=== PATIENT | female | born 1970 | race Caucasian/White ===

== ENCOUNTER 2018-02-09 15:06 | Emergency (ER) | payer OTHER ==
[2018-02-09 15:12] VITALS: BP 125/79; PULSE 78; RESP 18; TEMP 97.9
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
== END 2018-02-09 17:10 | disposition home or self-care (01) ==
LOC: EC 15:06
DX: S30.1XXA Contusion of abdominal wall, initial encounter (principal); E78.5 Hyperlipidemia, unspecified; Z90.49 Acquired absence of other specified parts of digestive tract; W50.0XXA Accidental hit or strike by another person, initial encounter
CPT/HCPCS: 99283

== ENCOUNTER 2018-05-17 09:42 | Emergency (ER) | payer OTHER ==
[2018-05-17] MEDS ORDERED: HYDROmorphone 1 MG/ML 1 ML SYRINGE IVP STA (09:46)
[2018-05-17] MEDS ORDERED: ONDANSETRON 4 MG/2 ML VIAL IVP STA (09:46)
[2018-05-17] MEDS ORDERED: METOCLOPRAMIDE 5 MG/ML 2 ML VIAL IVP STA (09:51)
--- NOTE | 2018-05-17 09:51 | ED ---
Female Urogenital HPI - General Stated complaint: ovarian cysts Time Seen by Provider: 05/17/18 09:45 Source: patient, EMS, RN notes reviewed Mode of arrival: EMS Limitations: no limitations - History of Present Illness Initial comments: This a 47-year-old female presents emergency Department chief complaint of right -sided abdominal pain. Patient was transferred from [facility] for right ovarian mass. Patient states she had minimal pain yesterday states the pain primarily started around 5:00 this morning. She states that she's had multiple rounds of Toradol, morphine and states that has not helped. Patient states that her ELECTRIC CAR OPERATOR is Dr. Yancey. Patient's had a prior ablation, multiple sections. Patient denies fever, chills she doesn't nausea and vomiting. Patient denies any chest pain or shortness of breath. Patient states pain radiates to her back. - Related Data Home Medications Medication Instructions Recorded Confirmed Aspirin EC [Ecotrin Low Dose] 81 mg PO DAILY 05/17/18 05/17/18 [place] Red 1 cap PO DAILY 05/17/18 05/17/18 Allergies Allergy/AdvReac Type Severity Reaction Status Date / Time No Known Allergies Allergy Verified 05/17/18 10:13 Review of Systems ROS Statement: Those systems with pertinent positive or pertinent negative responses have been documented in the HPI. ROS Other: All systems not noted in ROS Statement are negative. Past Medical History Past Medical History: Hyperlipidemia History of Any Multi-Drug Resistant Organisms: None Reported Past Surgical History: Ablation, Cholecystectomy Additional Past Surgical History / Comment(s): Hernia repair Past Psychological History: No Psychological Hx Reported Smoking Status: Never smoker Past Alcohol Use History: None Reported Past Drug Use History: None Reported General Exam Limitations: no limitations General appearance: alert, in no apparent distress Head exam: Present: atraumatic, normocephalic, normal inspection Respiratory exam: Present: normal lung sounds bilaterally. Absent: respiratory distress, wheezes, rales, rhonchi, stridor Cardiovascular Exam: Present: regular rate, normal rhythm, normal heart sounds. Absent: systolic murmur, diastolic murmur, rubs, gallop, clicks GI/Abdominal exam: Present: soft, tenderness (Moderate to severe right-sided), normal bowel sounds. Absent: distended, guarding, rebound, rigid Back exam: Absent: CVA tenderness (R), CVA tenderness (L) Skin exam: Present: warm, dry, intact, normal color. Absent: rash Course Vital Signs 05/17/18 05/17/18 05/17/18 09:43 11:16 12:40 Temperature 97.5 F L Pulse Rate 92 91 87 Respiratory 18 20 18 Rate Blood Pressure 147/81 153/84 148/78 O2 Sat by Pulse 97 96 95 Oximetry Medical Decision Making - Medical Decision Making 47-year-old female presented for right-sided ovarian mass. Ultrasound was performed here which shows complex 12.7 x 7.4 x 2 cm ovarian mass. Patient was evaluated by Dr. Yancey her ELECTRIC CAR OPERATOR and case discussed with him. He recommends patient be transferred to [facility] for evaluation by oncology ELECTRIC CAR OPERATOR. I did discuss the case with ELECTRIC CAR OPERATOR fellow,accepting physician Dr. Barros. Patient will be sent for observation, evaluation and possible further treatment. Patient's had intractable pain in the emergency department. Patient had 12 mg of morphine by outside facility, 30 mg of Toradol. Patient also had 1.5 mg of Dilaudid. Patient still rates pain 8 out of 10. Disposition Clinical Impression: Ovarian mass, right, Intractable abdominal pain Disposition: OTHER INSTITUTION NOT DEFINED Referrals: Dean Li DO [Primary Care Provider] - 1-2 days Time of Disposition: 13:10 - Out of Hospital Transfer - Req. Specs Out of Hospital Transfer - Requested Specifics: Other Emergency Center ( [facility])
[2018-05-17] MEDS ORDERED: HYDROmorphone 0.5 MG/0.5 ML SYRINGE IVP STA ×2 (10:59→13:15)
--- NOTE | 2018-05-17 11:52 | US ---
EXAMINATION TYPE: US pelvis parker w tv w doppler DATE OF EXAM: 05/17/2018 COMPARISON: CT 2009 CLINICAL HISTORY: right ovarian mass on CT. Right pelvic pain, history of uterine ablation, 4 , para 3, miscarriage 1, history of 3 c-sections and tubal ligation. TECHNIQUE: Transvaginal ER exam with additional right adnexa transabdominal images. Date of LMP: Unknown EXAM MEASUREMENTS: Uterus: 6.6 x 3.6 x 4.1 cm Endometrial Stripe: 0.5 cm Right Ovary: cm Left Ovary: 5.9 x 2.9 x 4.1 cm 1. Uterus: anteverted, heterogeneous, nabothian cyst 2. Endometrium: appears wnl 3. Right Ovary: complex structure within right adnexa, right ovary is not seen. 4. Left Ovary: 3.4 x 2.5 x 3.2cm Spectral, color and waveform doppler imaging shows good arterial flow within the left ovary, unable to obtain venous flow within left ovary. Right ovary not clearly depicted and therefore vascular shahbaz lysis nondiagnostic. 5. Bilateral Adnexa: 2.0 x 7.4 x 12.7cm complex septated structure within right adnexa, 6. Posterior cul-de-sac: small amount of free fluid IMPRESSION: 1. There are bilateral complex appearing masses within the pelvis. This could be ovarian and related to complex cystic ovarian masses this includes ovarian neoplasms including malignancy. Cystic dilatio n fallopian tubes or pelvic inflammatory disease not excluded. Correlate clinically. Case discussed w ith ER clinician. Other etiologies not excluded. 2. Note is made of venous flow could not be obtained to the left ovary. Early torsion not excluded. 3. Small amount of free fluid in the pelvis.
[2018-05-17] MEDS ORDERED: KETOROLAC 30 MG/ML 1 ML VIAL IVP STA (12:11)
[2018-05-17 12:46] VITALS: RESP 18
--- NOTE | 2018-05-17 12:53 | P.OBCN ---
History of Present Illness Consult date: 05/17/18 Reason for consult: pelvic pain, pelvic mass Chief complaint: Abdominal pelvic pain History of present illness: This patient is a pleasant 47-year-old 4 para 3 female who began having some lower abdominal pelvic pain she states on Wednesday. At approximately 5:00 this morning her pain became much worse and she went to [facility] emergency department. Evaluation there included a CAT scan which showed a large pelvic mass. Since they have no TWISTING FRAME FIXER coverage at that hospital she was transferred to this emergency department for further evaluation. I however was not contacted about the patient from the other hospital. Evaluation here included a transvaginal and abdominal ultrasound which shows a normal uterus with a 12.7 x 7.4 complex septated mass of the right adnexa and a 3.4 x 3.2 cm mass in the left adnexa. There was also some small amount of free fluid. Patient was last seen in my office in April 2017 and was without WALLPAPERER problems. She does have a history of irritable bowel syndrome and has had an endometrial ablation in the past also for menorrhagia. Patient states that she was having no pain up until last Wednesday. Review of Systems Constitutional: Reports as per HPI Genitourinary: Reports as per HPI, Reports pelvic pain Menstruation: Reports amenorrhea Past Medical History Past Medical History: Hyperlipidemia Additional Past Medical History / Comment(s): Irritable bowel syndrome History of Any Multi-Drug Resistant Organisms: None Reported Past Surgical History: Ablation, Section, Cholecystectomy Additional Past Surgical History / Comment(s): Hernia repair Past Anesthesia/Blood Transfusion Reactions: No Reported Reaction Past Psychological History: No Psychological Hx Reported Smoking Status: Never smoker Past Alcohol Use History: None Reported Past Drug Use History: None Reported Medications and Allergies Home Medications Medication Instructions Recorded Confirmed Type Aspirin EC [Ecotrin Low Dose] 81 mg PO DAILY 05/17/18 05/17/18 History [place] Red 1 cap PO DAILY 05/17/18 05/17/18 History Allergies Allergy/AdvReac Type Severity Reaction Status Date / Time No Known Allergies Allergy Verified 05/17/18 10:13 Exam Vital Signs Temp Pulse Resp BP Pulse Ox 05/17/18 11:16 91 20 153/84 96 05/17/18 09:43 97.5 F L 92 18 147/81 97 Intake and Output 05/16/18 05/17/18 05/17/18 22:59 06:59 14:59 Other: Weight 72.575 kg Results Pelvic ultrasound as above. CAT scan done at the outside hospital. CA-125 is pending. Assessment and Plan Assessment: This is a pleasant 47-year-old 4 para 3 female with three-day history of lower pelvic/abdominal pain that has worsened today. Patient appears quite uncomfortable and ultrasound shows a large right ovarian complex cystic mass and a smaller left mass. Also a small amount of free fluid. I had a long discussion about the possible etiologies of this and certainly one has to be concerned about a primary ovarian carcinoma. This could be an ovarian torsion however is less likely due to the bilateral nature. The free fluid is also somewhat concerning. Patient at this time is stable and it is my recommendation that if possible she be transferred to a WALLPAPERER oncologist due to the possibility of ovarian neoplasm. Dr. Otero is in the process of contacting WALLPAPERER oncology for transfer. I explained to the patient that if this is a benign processes she still needs surgery however if it is an ovarian carcinoma the consensus is that she will get the optimal care by a WALLPAPERER oncologist, hence the reason for transfer. Patient understands if they do not accept her in transfer the most likely wouldn't need to go to the operating room today for exploratory laparotomy and further surgery. I explained this in detail to the patient and her daughters. She understands and agrees for transfer. All of her questions are answered. (1) Ovarian mass, left Current Visit: Yes Status: Acute Code(s): N83.9 - NONINFLAMMATORY DISORD OF OVARY, FALLOP & BROAD LIGMT, UNSP SNOMED Code(s): 860236104 (2) Ovarian mass, right Current Visit: Yes Status: Acute Code(s): N83.9 - NONINFLAMMATORY DISORD OF OVARY, FALLOP & BROAD LIGMT, UNSP SNOMED Code(s): 940977787 (3) Pelvic pain Current Visit: Yes Status: Acute Code(s): R10.2 - PELVIC AND PERINEAL PAIN SNOMED Code(s): 57819663
[2018-05-17 13:33] VITALS: BP 156/88; PULSE 103; TEMP 98.5
== END 2018-05-17 13:32 | disposition other institution (70) ==
LOC: EC 09:42
DX: N83.9 Noninflammatory disorder of ovary, fallopian tube and broad ligament, unspecified (principal); Z79.82 Long term (current) use of aspirin; Z53.8 Procedure and treatment not carried out for other reasons
CPT/HCPCS: 36415; 86304; 93976; 76830; 99285; 96374; 96375 ×2; 96376 ×2; J2765; J1885; J1170 ×2

== ENCOUNTER → 2018-07-21 | Outpatient (CLI) | payer OTHER ==
--- NOTE | 2018-07-21 13:59 | US ---
EXAMINATION TYPE: US pelvic complete DATE OF EXAM: 07/21/2018 COMPARISON: US 05/17/2018 CLINICAL HISTORY: R10.2 Pelvic Pain. Right sided x 3 days. 3 C-Sections. Uterine Ablation. Tubal lig ation. Right ovary and fallopian tube removed April 2018. TECHNIQUE: Transvaginal (TV). Date of LMP: Unknown EXAM MEASUREMENTS: Uterus: 6.8 x 4.9 x 4.0 cm Endometrial Stripe: Unclear. cm Right Ovary: removed cm Left Ovary: 4.0 x 2.5 x 2.0 cm 1. Uterus: Area of mixed echogenicity seen: 0.7 x 0.9 x 0.7cm Hyperechoic area seenL 0.6 x 0.7 x 0.6 cm. Subcentimeter anechoic area seen in cervix. 2. Endometrium: anechoic area with debris in KRISHNA- complex fluid? 3. Right Ovary: removed 4. Left Ovary: Anechoic areas seen. Largest: 2.6 x 2.3 x 1.6 cm. Spectral, color and waveform doppler imaging shows good arterial and venous flow within the ovaries ; there is no evidence for ovarian torsion. 5. Bilateral Adnexa: wnl 6. Posterior cul-de-sac: wnl IMPRESSION: 1. Small complex uterine myometrial lesion is of uncertain etiology. 2. Anechoic area with debris low uterine segment of the endometrium. 3. Dominant left ovarian cyst likely functional in nature.
== END ==
LOC: RADUSWWP 12:38
PROVIDERS: ATTEND Obstetrics & Gynecology
DX: N83.202 Unspecified ovarian cyst, left side (principal); N83.9 Noninflammatory disorder of ovary, fallopian tube and broad ligament, unspecified
CPT/HCPCS: 76830

== ENCOUNTER → 2018-09-30 | Outpatient (CLI) | payer OTHER ==
--- NOTE | 2018-10-03 08:56 | MM ---
Reason for exam: screening (asymptomatic). Last mammogram was performed 2 years and 9 months ago. History: Family history of breast cancer in 2 maternal aunts. Physical Findings: A clinical breast exam by your physician is recommended on an annual basis and results should be correlated with mammographic findings. MG Screening Mammo w CAD Bilateral CC and MLO view(s) were taken. Prior study comparison: July 23, 2017, mammogram. December 17, 2015, mammogram. The breast tissue is heterogeneously dense. This may lower the sensitivity of mammography. There is a group of calcifications in the left upper outer quadrant at posterior depth and in the lower inner quadrant at middle depth. No suspicious abnormality in the right breast. ASSESSMENT: Incomplete: need additional imaging evaluation, BI-RAD 0 RECOMMENDATION: Special view mammogram of the left breast. [facility] will attempt to contact patient to return for supplemental views.
== END | disposition home or self-care (01) ==
LOC: RADMAMWWP 08:31
PROVIDERS: ATTEND Obstetrics & Gynecology
DX: Z12.31 Encounter for screening mammogram for malignant neoplasm of breast (principal)
CPT/HCPCS: 77067

== ENCOUNTER → 2018-10-05 | Outpatient (CLI) | payer OTHER ==
--- NOTE | 2018-10-05 15:00 | MM ---
Reason for exam: additional evaluation requested from abnormal screening. Last mammogram was performed less than 1 month ago. History: Family history of breast cancer in 2 maternal aunts. Physical Findings: Nurse did not find any significant physical abnormalities on exam. (Nurse KP) MG 3D Work Up W/Cad LT Spot compression CC, spot compression MLO, and ML view(s) were taken of the left breast. Prior study comparison: September 30, 2018, bilateral MG screening mammo w CAD. July 23, 2017, mammogram. The breast tissue is heterogeneously dense. This may lower the sensitivity of mammography. There is a 1.3 cm group of calcifications in the left inner quadrant at the anterior depth for which stereo core biopsy is recommended as these are new and indeterminate. There is also a 2mm new group of calcifications in the upper outer quadrant at the middle depth. These are also indererminate and a stereo core biopsy is recommended. ASSESSMENT: Suspicious, BI-RAD 4 RECOMMENDATION: Stereotactic core biopsy of the left breast. Called Dr Yancey with mammographic findings and has scheduled an appointment for the patient on November 17 at 9:[address] Dailey. for results. Left Stereotactic Biopsy is scheduled on November 04. PRELIMINARY REPORT CALLED AND FAZED TO DR DAILEY ON 10-05-2018.
== END | disposition home or self-care (01) ==
LOC: RADMAMWWP 08:52
PROVIDERS: ATTEND Obstetrics & Gynecology
DX: R92.8 Other abnormal and inconclusive findings on diagnostic imaging of breast (principal)
CPT/HCPCS: 77061; 77065

== ENCOUNTER → 2018-11-04 | Day surgery (SDC) | payer OTHER ==
[2018-11-04 09:33] VITALS: RESP 16; TEMP 97.7; BMI 69.9
[2018-11-04 11:51] VITALS: BP 120/78; PULSE 99
--- NOTE | 2018-11-04 16:37 | MM ---
EXAMINATION TYPE: MG stereo VAD BX LT DATE OF EXAM: 11/04/2018 COMPARISON: NONE CLINICAL HISTORY: Abnormal mammogram, 2 locations abnormal calcifications TECHNIQUE: Stereotactic guided core biopsy of left breast. FINDINGS: The procedure of stereotactic guided core biopsy was explained to the patient. Benefits, alternatives, and risks were discussed. An informed consent was then obtained. Timeout was performed. The first more difficult site was attempted be targeted with multiple attempts. The Z value is very shallow at what would appear to be the targeted calcifications. This precluded safe biopsy of these calcifications. Patient was informed of these calcifications were not biopsied at this time and management decisions may be made following pathology of the second biopsy site. The shortness pathway for biopsy was chosen. Shortness pathway was inferior caudal cranial approach. Procedure was performed by Dr. Sanofrd. Targeting was performed by the radiologist. A vacuum assisted biopsy gun was used to obtain 4 core samples. Skin was cleansed with Betadine. Skin and deeper breast tissue was anesthetized with 1% lidocaine. Skin tamera was placed. Needle was advanced and positioned was confirmed in 2 views. Needle was then advanced into its final position and positioning was confirmed in 2 views. 4 core samples were obtained. On the last core sample patient experienced pain, additional core samples were not obtained. Clip was placed at the biopsy site. Specimen radiograph: Specimen radiograph was obtained demonstrating multiple calcifications within the sample. Postprocedure mammogram: Surgical clip is at the expected calcifications biopsy site. The patient tolerated the procedure well without any immediate complication. Good hemostasis was obtained with direct pressure. Discharge instructions were discussed with the patient. The patient will follow-up with her physician for results. IMPRESSION: 1. Successful stereotactic core biopsy larger group of suspicious calcifications. 2. Initial smaller posterior group of calcifications left upper outer quadrant were unable to be biopsied at this time, not being adequately visualized during targeting. Recommendations: 1. Recommendations are pending pathology results. 2. Dependent upon the pathology, the decision on how to manage the additional calcifications is pending. Negative pathology does not preclude neoplasm at the second site. 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 See Surgical Pathology Cancer Case Summary. 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 Recommendation Surgical consult of the left breast. Therapy and follow up. Second site: re-evaluate for neoplasm, questionable open biopsy, unable to see on stereotactic. MTDD
== END ==
LOC: RADMAMWWP 09:14
PROVIDERS: ATTEND Surgery
DX: D05.12 Intraductal carcinoma in situ of left breast (principal)
CPT/HCPCS: 88305; 88342; 19081; A4648; J2001; 88341

== ENCOUNTER → 2018-11-10 | Outpatient (CLI) | payer OTHER ==
[2018-11-10 11:58] VITALS: BP 123/82; PULSE 101; RESP 18; TEMP 98.7; BMI 31.7
--- NOTE | 2018-11-10 12:59 | P.GSHP ---
History of Present Illness H&P Date: 11/10/18 Chief Complaint: DCIS left breast Giulia is a 48-year-old white female who underwent routine screening mammogram was noted to have an area of concern in the left breast. She underwent a stereotactic core biopsy which revealed low-grade ductal carcinoma in situ. The procedure was done in . Additionally there was a second area noted in the breast for which stereotactic core biopsy was recommended however there were unable to target this at the procedure in this area was therefore not sampled. She denies anything of concern in her breast at this time. She has no nipple discharge or skin changes. She has no history of any infection or trauma to the breast. Giulia states that since the procedure she has had some serous-like drainage from the nipple area. Family History: 2 maternal aunts with breast cancer: (one in late 40's and other late 50's) father: lung cancer mother: skin cancer Hormonal history: Menarche: 11 1 miscarrage, breast fed: yes, first born at 19 Periods: ablation 2012 still has spotting irregular BCP: 6 years hormones: none Past surgical history: 1. 3 C-sections 2. tubaligation 3. Cholecystectomy 4. Umbilical hernia 5. right ovary, Right tube and left tube gone she still has her left ovary Medical history: 1. pre-diabetic 2. high cholesterol Social history: Smoke: As a teen has not smoked for 30 years Alcohol: Occasional 1 time a month Drugs: Negative - Constitutional Constitutional: Denies chills, Denies fever - EENT Eyes: denies blurred vision, denies pain Ears: deny: decreased hearing, tinnitus Ears, nose, mouth and throat: Denies headache, Denies sore throat - Breasts Breasts: bilateral: as per HPI - Cardiovascular Cardiovascular: Denies chest pain, Denies shortness of breath - Respiratory Respiratory: Denies cough, Denies 7 - Gastrointestinal Comment: IBS Gastrointestinal: Reports diarrhea, Denies abdominal pain, Denies nausea, Denies vomiting - Genitourinary (Female) Genitourinary: Denies dysuria, Denies hematuria - Menstruation Menstruation: Reports as per HPI - Musculoskeletal Musculoskeletal: Denies myalgias - Integumentary Integumentary: Denies pruritus, Denies rash - Neurological Neurological: Denies numbness, Denies weakness - Psychiatric Psychiatric: Denies anxiety, Denies depression - Endocrine Comment: pre-diabetic - Hematologic/Lymphatic Comment: none - Allergic/Immunologic Comment: none Past Medical History Past Medical History: Hyperlipidemia Additional Past Medical History / Comment(s): Irritable bowel syndrome History of Any Multi-Drug Resistant Organisms: None Reported Past Surgical History: Cholecystectomy, Hysterectomy, Uterine Ablation Additional Past Surgical History / Comment(s): Hernia repair. Right oopherectomy 2019 Past Anesthesia/Blood Transfusion Reactions: No Reported Reaction Past Psychological History: No Psychological Hx Reported Smoking Status: Never smoker Past Alcohol Use History: Occasional Past Drug Use History: None Reported Medications and Allergies Home Medications Medication Instructions Recorded Confirmed Type Cholecalciferol (Vitamin D3) 1,000 unit PO DAILY 10/21/18 11/10/18 History [Vitamin D3] Fenofibrate [Lofibra] 160 mg PO ONCE 10/21/18 11/10/18 History metFORMIN HCL [Glucophage] 500 mg PO BID 10/21/18 11/10/18 History Allergies Allergy/AdvReac Type Severity Reaction Status Date / Time No Known Allergies Allergy Verified 11/10/18 11:58 Surgical - Exam Vital Signs Temp Pulse Resp BP Pulse Ox 98.7 F 101 H 18 123/82 98 11/10/18 11:55 11/10/18 11:55 11/10/18 11:55 11/10/18 11:55 11/10/18 11:55 BMI 31.7 - General well developed, well nourished, no distress - Eyes normal ocular movement - ENT no hearing loss, no congestion - Neck no masses, trachea midline - Respiratory normal respiratory effort, clear to auscultation - Cardiovascular Rhythm: regular Heart Sounds: normal: S1, S2 - Abdomen Abdomen: soft, non tender, no guarding, no rigid, no rebound - Integumentary normal turgor - Neurologic no disoriented, no combative - Musculoskeletal normal gait, normal posture - Psychiatric oriented to time, oriented to person, oriented to place, speech is normal, memory intact breast exam: right breast: Multi-positional exam fibrocystic changes, no dominant masses or nodules of concern Right axilla: No adenopathy of concern Left breast: Excoriation of the tip of the nipple is likely related to tape at the time of stereo procedure, no infection, multiple positional exam no dominant mass or nodule is of concern, mild ecchymosis at site of biopsy Left axilla: No adenopathy of concern Results Mammogram personally reviewed with radiologist Assessment and Plan Assessment: Impression: 1. DCIS left breast 2. Mammographic abnormality 2 left breast only one area sampled 3. Prediabetes 4. Family history breast cancer 5. High cholesterol Plan: 1. Repeat attempt at stereo biopsy upper outer quadrant 2 mm lesion in the left breast 2. Genetic testing 3. Patient to meet with radiation oncology 4. Case to be presented at tumor board We have discussed surgical options including mastectomy versus lumpectomy plus radiation therapy. She will also most likely have sentinel node biopsy possible axillary node dissection. We will address the secondary in the left breast either by stereo biopsy or needle local excision at the time of the lumpectomy. Cc: Dr. Li
== END ==
LOC: WWCWWP 11:45
PROVIDERS: ATTEND Surgery
DX: Z53.9 Procedure and treatment not carried out, unspecified reason (principal)

== ENCOUNTER 2019-01-17 08:55 | Day surgery (SDC) | payer OTHER ==
--- NOTE | 2019-01-12 16:52 | P.PN ---
Subjective Progress Note Date: 01/12/19 Principal diagnosis: Left breast ductal carcinoma in situ Giulia is a 48-year-old white female who underwent routine screening mammogram was noted to have an area of concern in the left breast. She underwent a stereotactic core biopsy which revealed low-grade ductal carcinoma in situ. The procedure was done on . Additionally there was a second area noted in the breast for which stereotactic core biopsy was recommended however there were unable to target this at the procedure in this area was therefore not sampled. She denies anything of concern in her breast at this time. She has no nipple discharge or skin changes. She has no history of any infection or trauma to the breast. Giulia states that since the procedure she has had some serous-like drainage from the nipple area. Family History: 2 maternal aunts with breast cancer: (one in late 40's and other late 50's) father: lung cancer mother: skin cancer Hormonal history: Menarche: 11 1 miscarrage, breast fed: yes, first born at 19 Periods: ablation 2012 still has spotting irregular BCP: 6 years hormones: none Past surgical history: 1. 3 C-sections 2. tubaligation 3. Cholecystectomy 4. Umbilical hernia 5. right ovary, Right tube and left tube gone she still has her left ovary Medical history: 1. pre-diabetic 2. high cholesterol Social history: Smoke: As a teen has not smoked for 30 years Alcohol: Occasional 1 time a month Drugs: Negative - Constitutional Constitutional: Denies chills, Denies fever - EENT Eyes: denies blurred vision, denies pain Ears: deny: decreased hearing, tinnitus Ears, nose, mouth and throat: Denies headache, Denies sore throat - Breasts Breasts: bilateral: as per HPI - Cardiovascular Cardiovascular: Denies chest pain, Denies shortness of breath - Respiratory Respiratory: Denies cough, Denies 7 - Gastrointestinal Comment: IBS Gastrointestinal: Reports diarrhea, Denies abdominal pain, Denies nausea, Denies vomiting - Genitourinary (Female) Genitourinary: Denies dysuria, Denies hematuria - Menstruation Menstruation: Reports as per HPI - Musculoskeletal Musculoskeletal: Denies myalgias - Integumentary Integumentary: Denies pruritus, Denies rash - Neurological Neurological: Denies numbness, Denies weakness - Psychiatric Psychiatric: Denies anxiety, Denies depression - Endocrine Comment: pre-diabetic - Hematologic/Lymphatic Comment: none - Allergic/Immunologic Comment: none Past Medical History Past Medical History: Hyperlipidemia Additional Past Medical History / Comment(s): Irritable bowel syndrome History of Any Multi-Drug Resistant Organisms: None Reported Past Surgical History: Cholecystectomy, Hysterectomy, Uterine Ablation Additional Past Surgical History / Comment(s): Hernia repair. Right oopherectomy 2019 Past Anesthesia/Blood Transfusion Reactions: No Reported Reaction Past Psychological History: No Psychological Hx Reported Smoking Status: Never smoker Past Alcohol Use History: Occasional Past Drug Use History: None Reported Objective - Exam BMI 31.7 - Constitutional General appearance: Present: average body habitus - EENT Eyes: Present: EOMI ENT: Present: hearing grossly normal - Neck Neck: Present: normal ROM - Respiratory Respiratory: bilateral: CTA - Cardiovascular Rhythm: regular Heart sounds: normal: S1, S2 - Gastrointestinal General gastrointestinal: Present: soft - Integumentary Integumentary: Present: normal turgor - Musculoskeletal Musculoskeletal: Present: gait normal - Psychiatric Psychiatric: Present: A&O x's 3, appropriate affect, intact judgment & insight - Additional findings Additional findings: Breast examination [place] [id number] Right breast: Multiple positional exam fibrocystic changes, no dominant masses or nodules of concern Right axilla: No adenopathy of concern Left breast: No evidence of infection no dominant mass or nodule of concern noted Left axilla: No adenopathy of concern Assessment and Plan Assessment: Impression: 1. DCIS left breast 2. Mammographic abnormality 2 left breast only one area sampled 3. Diabetes 4. Family history of breast cancer 5. High cholesterol Plan: 1. Stereo biopsy secondary of concern in the left breast unsuccessful therefore recommend needle local excisional biopsy of both areas of concern in the left breast 2. Consider Genetic testing Surgical options including mastectomy versus lumpectomy plus radiation therapy have been discussed with the patient. At this time she would like to proceed with needle local excisional biopsy of 2 areas of concern in the left breast. We will also do a sentinel node biopsy; possible axillary node dissection. cc: Dr Li
[2019-01-13 11:28] VITALS: BMI 30.7
[~2019-01-17 08:55] MED LIST: DEXAMETHASONE SOD PHOSPHATE 10 MG/ML 1 ML VIAL IV ONE; HEPARIN SODIUM,PORCINE 5,000 UNIT/ML 1 ML VIAL SQ ONE; LACTATED RINGERS 1,000 ML IV SCH; LIDOCAINE 1% 20 ML VIAL (10MG/ML) FOR IV START INTRADERMA PRN; MIDAZOLAM 2 MG/2 ML VIAL IV PRN; ONDANSETRON 4 MG/2 ML VIAL IVP ONE; Pre Op ABX Message 1 EACH MISC MISCELLANE ONE; SCOPOLAMINE 1.5MG/72HR PATCH TRANSDERM ONE
[2019-01-17] MEDS ORDERED: ALPRAZolam 0.5 MG TAB PO ONE (09:36)
[2019-01-17 09:59] LABS: Glucose,Whole Blood 108 mg/dL (75-99)
[2019-01-17] MEDS ORDERED: LIDOCAINE 1% INJ 10MG/ML (20 ML MDV) SQ ONE ×2 (11:00→15:23)
[2019-01-17 11:13] VITALS: RESP 16
[2019-01-17] MEDS ORDERED: HEPARIN SODIUM,PORCINE 5,000 UNIT/ML 1 ML VIAL SQ ONE (13:10)
[2019-01-17] MEDS ORDERED: fentaNYL (PF) 50 MCG/ML 2 ML AMP ONE (13:39)
[2019-01-17] MEDS ORDERED: PROPOFOL 10 MG/ML 20 ML VIAL IV ONE (13:39)
[2019-01-17] MEDS ORDERED: MIDAZOLAM 2 MG/2 ML VIAL ONE (13:39)
[2019-01-17] MEDS ORDERED: SUCCINYLCHOLINE CHLORIDE 100 MG/5 ML SYR IV ONE (13:39)
[2019-01-17] MEDS ORDERED: LIDOCAINE 1% INJ 10MG/ML (20 ML MDV) ONE (13:39)
--- NOTE | 2019-01-17 14:33 | NM ---
EXAMINATION TYPE: NM sentinel node injection DATE OF EXAM: 01/17/2019 COMPARISON: 11/04/2018 HISTORY: Left breast cancer TECHNIQUE AND FINDINGS: The procedure of sentinel lymph node injection was explained to the patient. The benefits, alternatives, and risks were discussed. An informed consent was then obtained. Prepr ocedural timeout was performed. Overlying skin is cleaned with sterile alcohol. Following this, 546 uCi Tc99m Tilmanocept was inject ed in the upper outer aspect of the left nipple intradermally. The patient tolerated the procedure well without any immediate complication. The patient was kept in the radiology department for short stay after the procedure and then taken to surgery for surgical p rocedure what is presumed intraoperative gamma probe will be used for sentinel lymph node detection. IMPRESSION: Left breast radiotracer injection for sentinel node localization as above.
--- NOTE | 2019-01-17 15:30 | P.OP ---
Date of Procedure: 01/17/19 Preoperative Diagnosis: DCIS left breast, second mammographic area of concern on able to be biopsied via stereo biopsy Postoperative Diagnosis: Same Procedure(s) Performed: [place] node biopsy, needle localization and excisional lumpectomy of the area of DCIS, excisional biopsy of mammographic abnormality microcalcifications unable to be done via stereo biopsy Anesthesia: VIET Surgeon: Shelly Bravo Estimated Blood Loss (ml): 10 IV fluids (ml): 900 Pathology: other ([place] node biopsy, area of DCIS, area of microcal cifications which could not be sampled percutaneously) Condition: stable Disposition: same day Indications for Procedure: DCIS, mammographic abnormality left breast Operative Findings: Dense fibroglandular breast tissue Description of Procedure: The patient was taken to the operating room and following induction of general anesthesia the left breast was prepped and draped in a sterile fashion. The patient had an area in the left breast which was positive for ductal carcinoma in situ and a second area which was radiographically abnormal but could not be sampled via percutaneous biopsy although this was attempted. Additionally secondary to two potential areas of DCIS discussion about sentinel node biopsy was entertained with the patient. She wished this to be performed. Risks and benefits were discussed with the patient and she understood. The patient was brought to the operating room following needle localization of 2 areas of concern in the left breast and injection of lymphatic kind. Following induction of general anesthesia the left breast and axilla were prepped and draped in a sterile fashion. The axilla was approached initially. Utilizing the neoprobe the area of greatest radioactivity was identified. An incision was made in the axilla and the radioactive lymph node was identified. The node was removed using the Harmonic scalpel. The 10 second count on the lymph node was 6475. The background count was minimal. Following this the deep tissues were closed in the axilla using 3-0 Vicryl. The skin was closed using 4-0 Monocryl. Next addressed was the area of microcalcifications. The localization had been from a lateral to medial approach. A small incision was made in the breast and the shaft of the needle was identified. This was grasped using an Allis clamp. Surrounding tissue was excised. Dissection was carried down to the pectoralis muscle. Titanium clips were placed to leslie the cavity. The specimen was removed and painted for orientation. Radiograph of the specimen revealed microcalcifications were present. After we were assured that hemostasis was attained the deep tissues were closed using 3-0 Vicryl suture. The skin was closed using 4-0 Monocryl. The area of DCIS was then approached. This had been localized from medial to lateral. Small incision was made in the breast and carried down to the shaft of the needle. Surrounding tissue was excised. Dissection was performed inferiorly very close to the skin and a small defect was made in the skin during the dissection. Dissection continued to the hook of the needle and surrounding tissue was excised. After we were assured that hemostasis was attained titanium clips were placed. The deep tissues were closed using a 3-0 Vicryl suture. The specimen was sent for radiograph and it was confirmed area of concern had been removed. The skin defect was closed using 4-0 Monocryl and a 4-0 nylon suture. The incision was closed using 3-0 Vicryl suture followed by 4-0 Monocryl. Glue was applied to the incisions. The patient tolerated the procedure in stable condition. All instrument and sponge counts were correct at the end of the procedure.
--- NOTE | 2019-01-17 15:31 | P.DS ---
Providers Attending physician: Shelly Bravo Primary care physician: Dean Li Plan - Discharge Summary New Discharge Prescriptions: No Action Cholecalciferol (Vitamin D3) [Vitamin D3] 1,000 unit PO DAILY metFORMIN HCL [Glucophage] 500 mg PO BID Fenofibrate [Lofibra] 160 mg PO ONCE Discharge Medication List Cholecalciferol (Vitamin D3) [Vitamin D3] 1,000 unit PO DAILY 10/21/18 [History] Fenofibrate [Lofibra] 160 mg PO ONCE 10/21/18 [History] metFORMIN HCL [Glucophage] 500 mg PO BID 10/21/18 [History] Follow up Appointment(s)/Referral(s): Shelly Bravo MD [STAFF PHYSICIAN] - 1 Week Activity/Diet/Wound Care/Special Instructions: Do not drive today Patient may shower after 48 hours Discharge Disposition: HOME SELF-CARE
[2019-01-17 15:57] VITALS: TEMP 99
--- NOTE | 2019-01-17 16:01 | MM ---
EXAMINATION TYPE: MG pre op needle loc LT, MG surgical specimen LT, MG surgical specimen LT, MG pre op needle loc LT DATE OF EXAM: 01/17/2019 COMPARISON: Stereotactic guided biopsy dated 11/04/2018 and diagnostic mammogram dated 10/05/2018 CLINICAL HISTORY: Biopsy-proven left breast carcinoma and additional site of 2 mm indeterminate calcifications on the left that were not amenable to stereotactic guided biopsy. TECHNIQUE: Two site needle localization with wire placement and surgical excision of area of concern in the left breast. FINDINGS: The procedure of needle localization with wire placement and than surgical excision was explained to the patient. Benefits, alternatives, and risks were discussed. An informed consent was then obtained. Preprocedural timeout was performed. Site a (biopsy proven low grade ductal carcinoma in situ with associated calcifications-1.3 cm of calcifications on the diagnostic mammogram of 10/05/2018): The shortest pathway for procedure was chosen. Shortest pathway was medial to lateral approach. The overlying skin was prepped and draped in usual sterile fashion. 10 cc 1% lidocaine was used as anesthetic into the skin and subcutaneous tissue up to the level of area of concern. A 7 cm needle was used. It was placed via a medial collateral approach under mammographic guidance. Subsequent 90 degrees mammogram show the needle to be in satisfactory position relative to the targeted area. At this point, wire was placed and the needle was withdrawn. The wire was fixed to patient's skin. Images were marked for surgeon. Site B (2 mm group of calcifications in the upper outer quadrant at middle depth): The shortest pathway for procedure was chosen. Shortest pathway was lateral to medial approach. The overlying skin was prepped and draped in usual sterile fashion. 10 cc 1% lidocaine was used as anesthetic into the skin and subcutaneous tissue up to the level of area of concern. A 9 cm needle was used. It was placed via a lateral to medial approach under mammographic guidance. Subsequent 90 degrees mammogram show the needle to be in satisfactory position relative to the targeted area. At this point, wire was placed and the needle was withdrawn. The wire was fixed to patient's skin. Images were marked for surgeon. The patient tolerated the procedure well without any immediate complication. The patient was kept in the radiology department for short stay after the procedure and then taken to surgery for surgical excision. Targeted calcifications, biopsy marker and wire are identified in specimen mammograms. The patient was kept in hospital for short stay after the procedure and then discharged home in stable condition. IMPRESSION: Successful, uncomplicated needle localization with wire placement and surgical excision of suspicious group of calcifications and biopsy marker in the left breast, full pathology results to follow. Pathology Results: Malignant A. SENTINEL LYMPH NODE #1, BIOPSY: Lymph node with partial fat replacement, negative for metastasis. CK7 and HANNA immunoperoxidase stains are confirmatory (controls appropriate). B. LEFT AXILLARY CONTENTS: Lymph node with partial fat replacement, negative for metastasis. C. LEFT BREAST, LUMPECTOMY: Breast with previous biopsy site and proliferative fibrocystic changes including sclerosing adenosis with calcifications, radial scars, moderate usual type ductal hyperplasia and apocrine metaplasia. No residual DCIS or invasive malignancy identified. See note. D. MEDIAL LEFT BREAST TISSUE, EXCISION: Breast with previous biopsy site and background fibrocystic changes including sclerosing adenosis with calcifications, cysts, apocrine metaplasia, mild usual type ductal hyperplasia and fibroadenomatoid hyperplasia. No residual DCIS or invasive malignancy identified. See note. Recommendation Follow up mammogram of the left breast in 6 months. DIGNA
[2019-01-17 16:05] LABS: Glucose,Whole Blood 175 mg/dL (75-99)
[2019-01-17] MEDS ORDERED: LACTATED RINGERS 1,000 ML IV ONE (16:43)
[2019-01-17] MEDS: HYDROmorphone 0.5 MG/0.5 ML SYRINGE IVP PRN ×2 (17:04→17:16)
[2019-01-17 17:43] VITALS: PULSE 120
[2019-01-17 18:00] VITALS: BP 117/74
== END 2019-01-17 18:32 | disposition home or self-care (01) ==
LOC: OR 08:55
PROVIDERS: ATTEND Surgery
DX: R92.0 Mammographic microcalcification found on diagnostic imaging of breast (principal); N60.22 Fibroadenosis of left breast; E11.9 Type 2 diabetes mellitus without complications; Z80.3 Family history of malignant neoplasm of breast; E78.00 Pure hypercholesterolemia, unspecified; N64.52 Nipple discharge; N92.6 Irregular menstruation, unspecified; K58.0 Irritable bowel syndrome with diarrhea; E78.5 Hyperlipidemia, unspecified; N60.11 Diffuse cystic mastopathy of right breast; G43.909 Migraine, unspecified, not intractable, without status migrainosus; Z90.49 Acquired absence of other specified parts of digestive tract; Z90.721 Acquired absence of ovaries, unilateral; Z90.79 Acquired absence of other genital organ(s); Z87.891 Personal history of nicotine dependence; Z80.1 Family history of malignant neoplasm of trachea, bronchus and lung; Z80.8 Family history of malignant neoplasm of other organs or systems; Z90.710 Acquired absence of both cervix and uterus; Z79.84 Long term (current) use of oral hypoglycemic drugs; Z79.899 Other long term (current) drug therapy
CPT/HCPCS: 19301; 19125; 38525; 19281; 81025; 88342; 88307; 88341; 76098; 38792; A9520; J2250; J1644; J1100; J2405; J2001; J3010; J0330; J2704; J1170

== ENCOUNTER → 2019-01-26 | Outpatient (CLI) | payer OTHER ==
[2019-01-26 17:03] VITALS: BP 127/84; PULSE 92; RESP 18; TEMP 98.5; BMI 30.4
--- NOTE | 2019-01-26 17:26 | P.PN ---
Progress Note - Text Progress Note Date: 01/26/19 This is a 48-year-old white female status post excisional lumpectomy and sentinel node biopsy of the left breast on [id number]. There were 2 areas in the left breast. All areas are benign. Sentinal node was benign and both areas of excision and the breast have no residual DCIS or invasive malignancy identified. The patient was doing well until this morning when she noted that the medial incision had increased erythema associated with it. She states it was itching. She also has some mild erythema around the lateral incision. She has no erythema or evidence of any infection at the axillary incision. The patient has not had any fever or chills. The patient does not complain of any pain. Physical exam: Lungs: Clear Heart: Regular rate and rhythm Left breast medial incision area of erythema extending approximately 8 cm x 6 cm, lateral incision area of erythema 6 cm x 3.5 cm the erythema at his to have thickened skin with slight warmness of the area The inferior medial incision is clean and dry and sutures are removed Steri- Strips applied the breast incisions which are erythematous were closed using a subcuticular suture and surgical glu, there is a question whether she had a reaction to the glu. The area of erythema is marked with a marking pen for the patient to follow and she will call us if this expands Impression: 1. Patient status post sentinel node biopsy and lumpectomy of 2 areas of concern left breast 2. Postoperative erythema at the breast incisions 3. No fever or chills Plan: 1. Patient has an appointment with medical oncology tomorrow 2. Patient to [facility]: ow up with radiation oncology 3. Will give pt prescription for antibiotics and appt. with dermatology 4. Follow-up. Next week CC: DR. Li
== END ==
LOC: WWCWWP 16:18
PROVIDERS: ATTEND Surgery
DX: Z53.9 Procedure and treatment not carried out, unspecified reason (principal)

== ENCOUNTER → 2019-02-02 | Outpatient (CLI) | payer OTHER ==
[2019-02-02 08:03] VITALS: BP 115/78; PULSE 87; RESP 16; TEMP 98.2; BMI 30.2
--- NOTE | 2019-02-02 08:55 | P.PN ---
Progress Note - Text Progress Note Date: 02/02/19 This is a 48-year-old white female status post excisional lumpectomy and sentinel node biopsy of the left breast on . There were 2 areas in the left breast. All areas are benign. Sentinal node was benign and both areas of excision and the breast have no residual DCIS or invasive malignancy identified. The patient was doing well until 01-26-19 when she noted that the medial incision had increased erythema associated with it. She states it was itching. She also has some mild erythema around the lateral incision. She has no erythema or evidence of any infection at the axillary incision. The patient was given a prescription for Keflex and seen by dermatology. Dermatology did not think this was an infectious process and gave her some steroid cream and she has had resolution of this area of erythema. The patient this morning states that she had some drainage from the inferior incision site. This appears to be serous in nature and her Steri-Strips came off yesterday. The patient is not having any fever or chills. The patient does not complain of any pain. Physical exam: Examination of all 3 incisions reveals them to be clean and dry with no evidence of any infection no evidence of any drainage the inferior facet small incision site has some mild serous drainage. Palpation does not reveal any hematoma in the breast. Steri-Strips were applied to the inferior breast site that has some darinage at the edges Impression: 1. Patient status post 2 areas of resection of the left breast no residual DCIS or invasive malignancy 2. Patient seen by medical and radiation oncology she will start tamoxifen but does not need any chemotherapy or radiation therapy Plan: 1. Follow up next week to reevaluate incision 2. Left breast mammogram an appointment in 6 months 3. Follow-up here in 3 months 4. Tamoxifen as per medical oncology CC: Dr. Li
== END ==
LOC: WWCWWP 07:48
PROVIDERS: ATTEND Surgery
DX: Z53.9 Procedure and treatment not carried out, unspecified reason (principal)

== ENCOUNTER → 2019-05-05 | Outpatient (CLI) | payer OTHER ==
[2019-05-05 08:59] VITALS: BP 111/79; PULSE 98; RESP 16; TEMP 98.3
--- NOTE | 2019-05-05 09:24 | P.PN ---
Subjective Progress Note Date: 05/05/19 Principal diagnosis: Surveillance stage IV breast cancer, dx. 11/04/18 Giulia is a 48-year-old white female status post left breast lumpectomy and sentinel biopsy on 01/17/2019 for a ductal carcinoma in situ. Pathology revealed no residual DCIS and sentinel nodes were negative. The lesion was ER/ID positive. She was seen by radiation oncology however it was not felt that she needed to have radiation therapy. She was started on tamoxifen however the tamoxifen caused an elevation of her cholesterol and the tamoxifen has been stopped at this time. Her cholesterol levels will be rechecked and tamoxifen started again at a lower dose. Intermittent sharp pains have occured at random areas in the left breast on three occasions since December. The last time was last week. The pain is described as sharp. It was at the medial aerolar area. It lasted only a few seconds. No pain has been noted since then. It doesn't spread anyplace. She does not associate anything with the occurrence. Patient has no other complaints related to either breasts. She is not complaining of any lumps masses nipple discharge or skin changes in the breast. Of importance is the fact [place] [address] revealed 2 areas of microcalcifications of concern in the left breast. One of these could be accessed for [place]ot[place] [address], this revealed low-grade DCIS. The patient therefore when she had lumpectomy for the DCIS had surgical excision of the second group of calcifications as well. No residual DCIS or invasive malignancy was found in either lumpectomy specimen. 2 separate lumpectomies were done for the areas of microcalcification. Family History: 2 maternal aunts breast cancer Medical History: high cholesterol/at present tamoxifen has been held her cholesterol levels will be rechecked prediabetes Surgical History: 3 C-sections Tubal ligation Cholecystectomy Umbilical hernia repair Right ovary/right tube and left tube gone she still has her left ovary Left breast lumpectomy with sentinel node biopsy Review of systems: Constitutional: Intermittent hot flashes HEENT: Negative was glasses Breasts: As per HPI Cardiovascular: High cholesterol Respiratory: Negative GI irritable bowel syndrome : Right ovary removed secondary to torsion/uterine ablation patient does not have menstrual periods at this time Musculoskeletal: Negative Integument: Negative Neurologic: Negative Psychiatric: Negative Endocrine: Prediabetic Objective - Vital Signs Vital signs: Vital Signs Temp 98.3 F 05/05/19 08:53 Pulse 98 05/05/19 08:53 Resp 16 05/05/19 08:53 BP 111/79 05/05/19 08:53 Pulse Ox 96 05/05/19 08:53 Intake & Output 05/04/19 05/05/19 05/05/19 18:59 06:59 18:59 Weight 68.492 kg - Exam BMI 30.5 - Constitutional General appearance: Present: obese - EENT Eyes: Present: EOMI ENT: Present: hearing grossly normal - Neck Neck: Present: normal ROM - Respiratory Respiratory: bilateral: CTA - Cardiovascular Rhythm: regular Heart sounds: normal: S1, S2 - Gastrointestinal General gastrointestinal: Present: normal bowel sounds, soft - Integumentary Integumentary: Present: normal turgor - Musculoskeletal Musculoskeletal: Present: gait normal - Psychiatric Psychiatric: Present: A&O x's 3, appropriate affect, intact judgment & insight - Allied health notes Allied Health Notes Comment(s): Examination: BRA wears large sports bra Right breast: Multiple positional exam no dominant masses or nodules of concern Right axilla: No adenopathy of concern Left breast: Multi-positional exam no dominant masses or nodules of concern, fibrocystic changes, scar tissue related to recent lumpectomy there were 3 scars in the left breast all are well-healed with no evidence of any infection Left axilla: No adenopathy of concern axillary incision is clean and dry and well-healed Assessment and Plan Assessment: Impression: 1. Stages 0 left breast cancer/ductal carcinoma in situ diagnosed in October 2018 2. Patient status post lumpectomy of 2 sites of microcalcifications of the left breast in December 2018/all margins were negative 3. Patient was seen by radiation oncology and not recommended to undergo radiation therapy 4. Patient lesion was ER positive and patient was started on tamoxifen as per medical oncology, patient developed increased cholesterol and tamoxifen was intermittently stopped 5. Patient will have repeat cholesterol levels drawn after tamoxifen has been stopped and tamoxifen and/or an aromatase inhibitor will most likely be started in the near future 6. Hormone levels drawn to determine if patient is perimenopausal 7. No evidence of recurrent cancer on today's examination 6. Fleeting intermittent left breast shooting pain/felt to be related to scar tissue and this will be followed clinically Plan: 1. Await results of hormone levels to determine if patient is perimenopausal 2. Repeat cholesterol evaluation to either restart tamoxifen or to start an aromatase inhibitor 3. Left breast mammogram June with physician exam at that time 4. Bilateral mammogram in September/October 5. Patient to call if any problems with breast pain or changes in her breast CC: Xenia Garcia Hartman encounter 25 minutes > 50% planning and counselling Time with Patient: Less than 30
== END | disposition home or self-care (01) ==
LOC: WWCWWP 08:45
PROVIDERS: ATTEND Surgery
DX: Z53.9 Procedure and treatment not carried out, unspecified reason (principal)

== ENCOUNTER 2019-08-08 14:41 | Emergency (ER) | payer OTHER ==
[2019-08-08 14:45] VITALS: TEMP 98
[2019-08-08] MEDS ORDERED: SODIUM CHLORIDE 0.9% 500 ML 500 ML IV STA (15:12)
--- NOTE | 2019-08-08 15:31 | XR ---
EXAMINATION TYPE: XR chest 1V portable DATE OF EXAM: 08/08/2019 Comparison: None Clinical History: 49-year-old female with pain Findings: The heart is normal size. Aorta and pulmonary vasculature within normal limits. There is some focal p atchy medial right basilar opacity. No other consolidation or pleural effusion seen. Impression: Small area of focal medial right basilar atelectasis versus early infiltrate.
[2019-08-08 15:33] LABS: Basophils % (A) 0 %; Eosinophils # (A) 0.2 k/uL (0-0.7); Eosinophils % (A) 2 %; HCT 39.1 % (34.0-46.0); HGB 13.2 gm/dL (11.4-16.0); Lymphocytes # (A) 4.1 k/uL (1.0-4.8); Lymphocytes % (A) 44 %; MCH 29.6 pg (25.0-35.0); MCHC 33.7 g/dL (31.0-37.0); MCV 87.9 fL (80.0-100.0); Mean Platelet Volume 7.2; Monocytes # (A) 0.4 k/uL (0-1.0); Monocytes % (A) 4 %; Neutrophils # (A) 4.3 k/uL (1.3-7.7); Neutrophils % (A) 47 %; Platelet Count 472 k/uL (150-450); RBC 4.45 m/uL (3.80-5.40); RDW 12.8 % (11.5-15.5); WBC 9.2 k/uL (3.8-10.6)
--- NOTE | 2019-08-08 15:36 | ED ---
General Adult HPI - General Chief complaint: Arrhythmia/Palpitations Stated complaint: palpitations Time Seen by Provider: 08/08/19 15:06 Source: patient, RN notes reviewed, old records reviewed Mode of arrival: ambulatory Limitations: no limitations - History of Present Illness Initial comments: 49-year-old female presenting with 24 hours central chest pain. Described as a tightness. She reports some dyspnea with exertion. She called her primary care physician today who recommended she present to the emergency department for evaluation. She has history of breast cancer status post lumpectomy and is currently on tamoxifen. She denies history of CAD, no history of DVT or PE. She denies cough or fever. She denies URI symptoms. She denies nausea or vomiting. Denies diaphoresis. Pain is been constant over the past 24 hours. - Related Data Home Medications Medication Instructions Recorded Confirmed Cholecalciferol (Vitamin D3) 1,000 unit PO QAM 10/21/18 08/08/19 [Vitamin D3] metFORMIN HCL [Glucophage] 500 mg PO BID 10/21/18 08/08/19 Gemfibrozil [Lopid] 600 mg PO BID 08/08/19 08/08/19 Multivitamins, Thera [Multivitamin 1 tab PO DAILY 08/08/19 08/08/19 (formulary)] Tamoxifen Citrate 20 mg PO DAILY 08/08/19 08/08/19 Allergies Allergy/AdvReac Type Severity Reaction Status Date / Time No Known Allergies Allergy Verified 08/08/19 17:02 Review of Systems ROS Statement: Those systems with pertinent positive or pertinent negative responses have been documented in the HPI. ROS Other: All systems not noted in ROS Statement are negative. Past Medical History Past Medical History: Cancer, Diabetes Mellitus, Hyperlipidemia Additional Past Medical History / Comment(s): Irritable bowel syndrome; migranes, breast ca History of Any Multi-Drug Resistant Organisms: None Reported Past Surgical History: Cholecystectomy, Hernia Repair, Hysterectomy, Tubal Ligation, Uterine Ablation Additional Past Surgical History / Comment(s): umbilical hernia; Right oopherectomy 2019, lumpectomy Past Anesthesia/Blood Transfusion Reactions: No Reported Reaction Past Psychological History: No Psychological Hx Reported Smoking Status: Never smoker Past Alcohol Use History: Occasional Past Drug Use History: None Reported - Past Family History Mother Family Medical History: Cancer Father Family Medical History: Cancer Additional Family Medical History / Comment(s): lung General Exam Limitations: no limitations General appearance: alert, in no apparent distress Head exam: Present: atraumatic, normocephalic Eye exam: Present: normal appearance, PERRL ENT exam: Present: normal exam Neck exam: Present: normal inspection. Absent: tenderness, meningismus Respiratory exam: Present: normal lung sounds bilaterally, respiratory distress Cardiovascular Exam: Present: normal rhythm, tachycardia GI/Abdominal exam: Present: soft. Absent: distended, tenderness, guarding Extremities exam: Present: normal inspection, normal capillary refill. Absent: pedal edema, calf tenderness Neurological exam: Present: alert, oriented X3, CN II-XII intact. Absent: motor sensory deficit Psychiatric exam: Present: normal affect, normal mood Skin exam: Present: warm, dry, intact. Absent: cyanosis, diaphoretic Course Vital Signs 08/08/19 08/08/19 08/08/19 14:42 15:00 15:17 Temperature 98.0 F Pulse Rate 128 H 114 H Pulse Rate [ 103 H Architectural Associate ] Respiratory 20 18 Rate Blood Pressure 151/87 O2 Sat by Pulse 97 96 Oximetry 08/08/19 08/08/19 16:02 17:52 Temperature Pulse Rate 106 H 104 H Pulse Rate [ Architectural Associate ] Respiratory 18 16 Rate Blood Pressure 132/80 145/87 O2 Sat by Pulse 100 98 Oximetry EKG Findings - EKG Comments: EKG Findings:: EKG: Sinus tachycardia, Q waves in the inferior leads, age undetermined anterior infarct, rate of 105, TX interval 136, QRS duration 74, QTC 438, no ST segment elevation. Medical Decision Making - Medical Decision Making 49-year-old presenting with chest pain, palpitations. Patient is well-appearing with tachycardia and otherwise stable vitals on presentation. She has an EKG which is negative for ST segment elevation, sinus tachycardia. Workup in the emergency department reveals a chest x-ray which is concerning for infiltrate, this is ruled out on CT angiography which is performed for concern for pulmonary embolism. There is no pulmonary embolism on CT no acute findings. Patient has normal CBC, CMP is normal with exception of mild hypercalcemia at 11.1. Initial troponin is negative. She's given aspirin and IV fluids in the emergency department. My initial plan was to admit this patient for serial cardiac enzymes and cardiology consultation. Given the current pandemic patient does not want to be admitted with did ultimately decide on serial cardiac enzymes in the emergency department. She receives a 3 hour troponin which is also negative. She's given strict return parameters. She has a primary care physician and is able to obtain outpatient workup. Her is at bedside both are agreeable. - Lab Data Result diagrams: 08/08/19 14:51 08/08/19 14:51 Lab Results 08/08/19 08/08/19 08/08/19 Range/Units 14:51 14:51 14:51 WBC 9.2 (3.8-10.6) k/uL RBC 4.45 (3.80-5.40) m/uL Hgb 13.2 (11.4-16.0) gm/dL Hct 39.1 (34.0-46.0) % MCV 87.9 (80.0-100.0) fL MCH 29.6 (25.0-35.0) pg MCHC 33.7 (31.0-37.0) g/dL RDW 12.8 (11.5-15.5) % Plt Count 472 H (150-450) k/uL Neutrophils % 47 % Lymphocytes % 44 % Monocytes % 4 % Eosinophils % 2 % Basophils % 0 % Neutrophils # 4.3 (1.3-7.7) k/uL Lymphocytes # 4.1 (1.0-4.8) k/uL Monocytes # 0.4 (0-1.0) k/uL Eosinophils # 0.2 (0-0.7) k/uL Basophils # 0.0 (0-0.2) k/uL PT 9.6 (9.0-12.0) sec INR 0.9 (<1.2) APTT 24.2 (22.0-30.0) sec Sodium 139 (137-145) mmol/L Potassium 4.2 (3.5-5.1) mmol/L Chloride 105 (98-107) mmol/L Carbon Dioxide 22 (22-30) mmol/L Anion Gap 12 mmol/L BUN 14 (7-17) mg/dL Creatinine 0.80 (0.52-1.04) mg/dL Est GFR (CKD-EPI)AfAm >90 (>60 ml/min/1.73 sqM) Est GFR (CKD-EPI)NonAf 87 (>60 ml/min/1.73 sqM) Glucose 134 H (74-99) mg/dL Calcium 11.1 H (8.4-10.2) mg/dL Magnesium 1.9 (1.6-2.3) mg/dL Total Bilirubin 0.3 (0.2-1.3) mg/dL AST 20 (14-36) U/L ALT 12 (4-34) U/L Alkaline Phosphatase 52 (38-126) U/L Troponin I (0.000-0.034) ng/mL NT-Pro-B Natriuret Pep pg/mL Total Protein 8.6 H (6.3-8.2) g/dL Albumin 5.1 H (3.5-5.0) g/dL Lipase 145 (23-300) U/L 08/08/19 08/08/19 08/08/19 Range/Units 14:51 14:51 17:56 WBC (3.8-10.6) k/uL RBC (3.80-5.40) m/uL Hgb (11.4-16.0) gm/dL Hct (34.0-46.0) % MCV (80.0-100.0) fL MCH (25.0-35.0) pg MCHC (31.0-37.0) g/dL RDW (11.5-15.5) % Plt Count (150-450) k/uL Neutrophils % % Lymphocytes % % Monocytes % % Eosinophils % % Basophils % % Neutrophils # (1.3-7.7) k/uL Lymphocytes # (1.0-4.8) k/uL Monocytes # (0-1.0) k/uL Eosinophils # (0-0.7) k/uL Basophils # (0-0.2) k/uL PT (9.0-12.0) sec INR (<1.2) APTT (22.0-30.0) sec Sodium (137-145) mmol/L Potassium (3.5-5.1) mmol/L Chloride (98-107) mmol/L Carbon Dioxide (22-30) mmol/L Anion Gap mmol/L BUN (7-17) mg/dL Creatinine (0.52-1.04) mg/dL Est GFR (CKD-EPI)AfAm (>60 ml/min/1.73 sqM) Est GFR (CKD-EPI)NonAf (>60 ml/min/1.73 sqM) Glucose (74-99) mg/dL Calcium (8.4-10.2) mg/dL Magnesium (1.6-2.3) mg/dL Total Bilirubin (0.2-1.3) mg/dL AST (14-36) U/L ALT (4-34) U/L Alkaline Phosphatase (38-126) U/L Troponin I <0.012 <0.012 (0.000-0.034) ng/mL NT-Pro-B Natriuret Pep 30 pg/mL Total Protein (6.3-8.2) g/dL Albumin (3.5-5.0) g/dL Lipase (23-300) U/L Disposition Clinical Impression: Palpitations, Chest pain Disposition: HOME SELF-CARE Condition: Good Instructions (If sedation given, give patient instructions): Heart Palpitations (ED), Chest Pain (ED) Is patient prescribed a controlled substance at d/c from ED?: No Referrals: Dean Li DO [Primary Care Provider] - 1-2 days Time of Disposition: 18:37
[2019-08-08 15:42] LABS: ALT 12 U/L (4-34); AST 20 U/L (14-36); African American GFR (CKD) >90 (>60 ml/min/1.73 sqM); Albumin 5.1 g/dL (3.5-5.0); Alkaline Phosphatase 52 U/L (38-126); Anion Gap 12 mmol/L; Blood Urea Nitrogen 14 mg/dL (7-17); Calcium 11.1 mg/dL (8.4-10.2); Carbon Dioxide 22 mmol/L (22-30); Chloride 105 mmol/L (98-107); Glucose 134 mg/dL (74-99); INR 0.9 (<1.2); Magnesium 1.9 mg/dL (1.6-2.3); Non-African American GFR(CKD) 87 (>60 ml/min/1.73 sqM); Partial Thromboplastin Time 24.2 sec (22.0-30.0); Potassium 4.2 mmol/L (3.5-5.1); Prothrombin Time 9.6 sec (9.0-12.0); Sodium 139 mmol/L (137-145); Total Bilirubin 0.3 mg/dL (0.2-1.3); Total Protein 8.6 g/dL (6.3-8.2)
--- NOTE | 2019-08-08 16:12 | CT ---
EXAMINATION TYPE: CT angio chest DATE OF EXAM: 08/08/2019 COMPARISON: Radiograph same day HISTORY: 49-year-old female chest pain TECHNIQUE: Contiguous axial scanning of the chest performed with IV Contrast, patient injected with 7 0cc mL of Isovue 370. Coronal/sagittal MIP reconstructions performed. CT DLP: 300.6 mGycm Automated exposure control for dose reduction was used. FINDINGS: The heart is normal size without pericardial effusion. No flattening of the interventricular septum o r reflux of contrast into the hepatic veins. Aorta is normal caliber with conventional branching anatomy. No thoracic lymphadenopathy. Satisfactory opacification of the pulmonary dural system with mild breathing motion artifact especial ly in the lower lungs. No pulmonary embolus is identified. The questioned opacity at the medial right base corresponds to prominent epicardial fat pad. Mild dep endent atelectasis is present. Some additional stranding atelectasis at the inferior lingula. No cons olidation or pleural effusion. Visualized upper abdomen shows cholecystectomy clips. Bones: No osseous destructive process. IMPRESSION: 1. Some mild breathing motion artifacts. No pulmonary embolus is identified. 2. Questioned radiographic opacity at the medial right base corresponds to a prominent epicardial fat pad. No acute pulmonary process.
[2019-08-08] MEDS ORDERED: ASPIRIN 325 MG TAB PO STA (16:18)
[2019-08-08] MEDS ORDERED: SODIUM CHLORIDE 0.9% 500 ML 500 ML IV ONE (16:23)
[2019-08-08 18:49] VITALS: BP 145/92; PULSE 95; RESP 18
== END 2019-08-08 18:45 | disposition home or self-care (01) ==
LOC: EC 14:41
DX: R00.2 Palpitations (principal); R07.9 Chest pain, unspecified; R06.09 Other forms of dyspnea; R00.0 Tachycardia, unspecified; E83.52 Hypercalcemia; E11.9 Type 2 diabetes mellitus without complications; E78.5 Hyperlipidemia, unspecified; Z79.84 Long term (current) use of oral hypoglycemic drugs; Z79.899 Other long term (current) drug therapy; Z85.3 Personal history of malignant neoplasm of breast; Z79.810 Long term (current) use of selective estrogen receptor modulators (SERMs)
CPT/HCPCS: 36415; 93005; 83880; 80053; 83690; 83735; 84484; 85025; 85610; 85730; 71045; 71275; 99285; 96360; 96361 ×2; Q9967

== ENCOUNTER → 2019-10-03 | Outpatient (CLI) | payer OTHER ==
--- NOTE | 2019-10-03 09:49 | MM ---
Reason for exam: additional evaluation requested from prior study. Last mammogram was performed 1 year ago. History: Patient has history of breast cancer at age 48. Family history of breast cancer in 2 maternal aunts. Malignant MG pre op needle loc LT of the left breast, January 17, 2019. Malignant MG pre op needle loc LT of the left breast, January 17, 2019. Lumpectomy of the left breast, January 17, 2019. Malignant MG stereo VAD BX LT of the left breast, November 04, 2018. Physical Findings: Nurse did not find any significant physical abnormalities on exam. MG 3D Diag Mammo W/Cad DONAVON Bilateral CC and MLO view(s) were taken. Prior study comparison: October 05, 2018, left breast MG 3d work up w/cad LT. September 30, 2018, bilateral MG screening mammo w CAD. The breast tissue is heterogeneously dense. This may lower the sensitivity of mammography. There are new left skin calcifications. No suspicious abnormality. Stable left post surgical change. These results were verbally communicated with the patient and result sheet given to the patient on 10/03/19. ASSESSMENT: Benign, BI-RAD 2 RECOMMENDATION: Follow-up diagnostic mammogram of both breasts in 1 year.
== END | disposition home or self-care (01) ==
LOC: RADMAMWWP 08:16
PROVIDERS: ATTEND Surgery
DX: Z08 Encounter for follow-up examination after completed treatment for malignant neoplasm (principal); Z85.3 Personal history of malignant neoplasm of breast
CPT/HCPCS: 77062; 77066

== ENCOUNTER → 2019-10-06 | Outpatient (CLI) | payer OTHER ==
[2019-10-06 10:51] VITALS: BP 120/82; PULSE 92; RESP 16; TEMP 98.4
--- NOTE | 2019-10-06 11:29 | P.PN ---
Subjective Progress Note Date: 10/06/19 Principal diagnosis: stage 0 left breast cancer Giulia is a 48-year-old white female status post left breast lumpectomy and sentinel biopsy on 01/17/2019 for a ductal carcinoma in situ. Pathology revealed no residual DCIS and sentinel nodes were negative. The lesion was E R/MI positive. She was seen by radiation oncology however it was not felt that she needed to have radiation therapy. She was started on tamoxifen however the tamoxifen caused an elevation of her cholesterol and the tamoxifen has been stopped at this time. Her cholesterol levels will be rechecked and tamoxifen started again at a lower dose. Intermittent sharp pains have occured at random areas in the left breast several times a month. The last time was 2 days ago. The pain is described as sharp. It last only a few seconds. It doesn't spread anyplace. She does not associate anything with the occurrence. It was not in proximity to her incisions. Patient has no other complaints related to either breasts. She is not complaining of any lumps masses nipple discharge or skin changes in the breast. Of importance is the fact that [place] [address] revealed 2 areas of microcalcifications of concern in the left breast. One of these could be accessed [place] stereot[place] [address], this revealed low-grade DCIS. The patient therefore when she had lumpectomy for the DCIS had surgical excision of the second group of calcifications as well. No residual DCIS or invasive malignancy was found in either lumpectomy specimen. 2 separate lumpectomies were done for the areas of microcalcification. [place] [address]. This was felt to be benign BIRADS 2 follow-up with both breast and mammogram in 1 year is recommended. Family History: 2 maternal aunts breast cancer Medical History: high cholesterol/at present tamoxifen has been held her cholesterol levels will be rechecked prediabetes racing heart/ stress test and 24 hour monitor pending results Surgical History: 3 C-sections Tubal ligation Cholecystectomy Umbilical hernia repair Right ovary/right tube and left tube gone she still has her left ovary Left breast lumpectomy with sentinel node biopsy Review of systems: Constitutional: Intermittent hot flashes HEENT: Negative was glasses Breasts: As per HPI Cardiovascular: High cholesterol Respiratory: Negative GI irritable bowel syndrome : Right ovary removed secondary to torsion/uterine ablation patient does not have menstrual periods at this time Musculoskeletal: Negative Integument: Negative Neurologic: Negative Psychiatric: Negative Endocrine: Prediabetic Objective - Vital Signs Vital signs: Vital Signs Temp 98.4 F 10/06/19 10:49 Pulse 92 10/06/19 10:49 Resp 16 10/06/19 10:49 BP 120/82 10/06/19 10:49 Pulse Ox 98 10/06/19 10:49 Intake & Output 10/05/19 10/06/19 10/06/19 18:59 06:59 18:59 Weight 68.946 kg - Exam BMi 30.7 - Constitutional General appearance: Present: average body habitus - EENT Eyes: Present: EOMI ENT: Present: hearing grossly normal - Respiratory Respiratory: bilateral: CTA - Cardiovascular Rhythm: regular Heart sounds: normal: S1, S2 - Gastrointestinal General gastrointestinal: Present: normal bowel sounds, soft - Integumentary Integumentary: Present: normal turgor - Musculoskeletal Musculoskeletal: Present: gait normal - Psychiatric Psychiatric: Present: A&O x's 3, appropriate affect, intact judgment & insight - Additional findings Additional findings: breast exam: BRA sports bra inspection: ptosis grade 2/3 Patient: Right breast: Multi-positional exam fibrocystic changes, no dominant masses or nodules of concern Right axilla: No adenopathy of concern Left breast: 3 scars well healed in the area of the left breast 1 is in the axilla no dominant masses or nodules of concern and multiple positional exam fibrocystic changes Left axilla: No adenopathy of concern Beginning of a yeast infection appears under the left breast Assessment and Plan Assessment: Impression: 1. No evidence of recurrent cancer in the left breast or right breast 2. Recent bilateral mammogram on 69 benign repeat bilateral mammogram in 1 year 3. Beginning of fungal infection under her left breast. Start nystatin 4. Fibrocystic breast changes 5. Patient at underwent workup for cardiac changes/stress test in 24 hour heart monitor recently done Plan: 1. Nystatin under left breast as needed 2. Bilateral mammogram in 1 year 3. Six-month follow-up for close surveillance CC: Dr. Li encounter 20 minutes, > 50% of time in planning and counselling
== END | disposition home or self-care (01) ==
LOC: WWCWWP 10:43
PROVIDERS: ATTEND Surgery
DX: Z53.9 Procedure and treatment not carried out, unspecified reason (principal)

== ENCOUNTER → 2020-10-07 | Outpatient (CLI) | payer OTHER ==
--- NOTE | 2020-10-10 12:05 | MM ---
Reason for exam: additional evaluation requested from prior study. Last mammogram was performed 1 year ago. History: Patient has history of breast cancer at age 48. Family history of breast cancer in 2 maternal aunts. Malignant MG pre op needle loc LT of the left breast, January 17, 2019. Malignant MG pre op needle loc LT of the left breast, January 17, 2019. Lumpectomy of the left breast, January 17, 2019. Malignant MG stereo VAD BX LT of the left breast, November 04, 2018. Physical Findings: Nurse did not find any significant physical abnormalities on exam. MG 3D Diag Mammo W/Cad DONAVON Bilateral CC and MLO view(s) were taken. Prior study comparison: October 03, 2019, bilateral MG 3d diag mammo w/cad DONAVON. October 05, 2018, left breast MG 3d work up w/cad LT. September 30, 2018, bilateral MG screening mammo w CAD. Right lumpectomy changes. These results were verbally communicated with the patient and result sheet given to the patient on 10/07/20. ASSESSMENT: Benign, BI-RAD 2 RECOMMENDATION: Follow-up diagnostic mammogram of both breasts in 1 year.
== END | disposition home or self-care (01) ==
LOC: RADMAMWWP 10:15
PROVIDERS: ATTEND Surgery
DX: R92.8 Other abnormal and inconclusive findings on diagnostic imaging of breast (principal); Z80.3 Family history of malignant neoplasm of breast; Z85.3 Personal history of malignant neoplasm of breast
CPT/HCPCS: 77062; 77066

== ENCOUNTER → 2020-10-11 | Outpatient (CLI) | payer OTHER ==
[2020-10-11 10:52] VITALS: BP 113/79; PULSE 112; RESP 18; TEMP 98.1
--- NOTE | 2020-10-11 11:10 | P.PN ---
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 Pathology revealed no residual DCIS and sentinel nodes were negative. The lesion was ER/OR positive. She was seen by radiation oncology however was not felt that she needed to have radiation therapy. She was started on tamoxifen however this caused elevation of her cholesterol and that was stopped. She is not concerned about any lumps masses or nodules in either breast. She is not complaining of any nipple discharge or skin changes. She has not had any recent trauma or infection of the breast. Family History: 2 maternal aunts breast cancer Medical History: high cholesterol prediabetes racing heart follows with cardiology Surgical History: 3 C-sections Tubal ligation Cholecystectomy Umbilical hernia repair Right ovary/right tube and left tube gone she still has her left ovary Left breast lumpectomy with sentinel node biopsy Review of systems: Constitutional: Intermittent hot flashes improving HEENT: Negative was glasses Breasts: As per HPI Cardiovascular: High cholesterol Respiratory: Negative GI irritable bowel syndrome : Right ovary removed secondary to torsion/uterine ablation patient does not have menstrual periods at this time Musculoskeletal: Negative Integument: Negative Neurologic: Negative Psychiatric: Negative Endocrine: Prediabetic Objective - Vital Signs Vital signs: Vital Signs Temp 98.1 F 10/11/20 10:50 Pulse 112 H 10/11/20 10:50 Resp 18 10/11/20 10:50 BP 113/79 10/11/20 10:50 Pulse Ox 97 10/11/20 10:50 Intake & Output 10/10/20 10/11/20 10/11/20 18:59 06:59 18:59 Weight 68.946 kg - Exam BMI 30.7 - Constitutional General appearance: Present: average body habitus - EENT Eyes: Present: EOMI ENT: Present: hearing grossly normal - Neck Neck: Present: normal ROM - Respiratory Respiratory: bilateral: CTA - Cardiovascular Rhythm: regular Heart sounds: normal: S1, S2 - Gastrointestinal General gastrointestinal: Present: soft - Integumentary Integumentary: Present: normal turgor - Musculoskeletal Musculoskeletal: Present: gait normal - Psychiatric Psychiatric: Present: A&O x's 3, appropriate affect, intact judgment & insight - Additional findings Additional findings: Breast exam: BRA: large sports bra inspection: Vital grade 2 ptosis Palpation: right breast: Multiple positional exam fibrocystic changes, no dominant masses or nodules of concern Right axilla: No adenopathy of concern Left breast: Well-healed scar inferior aspect of the breast no dominant masses or nodules of concern, fibrocystic changes Left axilla: No adenopathy of concern Assessment and Plan Assessment: Impression: 1. Patient is for surveillance stage 0 left breast cancer no evidence of recurrence tumor was in 2019 Plan: 1. Follow-up examination in 6 months 2. Repeat bilateral mammogram in 1 year 3. Patient to follow sooner if any questions or concerns Cc: Dr. Li
== END ==
LOC: WWCWWP 10:41
PROVIDERS: ATTEND Surgery
DX: Z08 Encounter for follow-up examination after completed treatment for malignant neoplasm (principal); E78.00 Pure hypercholesterolemia, unspecified; Z85.3 Personal history of malignant neoplasm of breast; Z98.890 Other specified postprocedural states

== ENCOUNTER → 2021-04-10 | Outpatient (CLI) | payer OTHER ==
[2021-04-10 09:27] VITALS: BP 111/66; PULSE 98; RESP 16; TEMP 98.5
--- NOTE | 2021-04-10 09:56 | P.PN ---
Subjective Progress Note Date: 04/10/21 Principal diagnosis: stage 0 left breast cancer 2018 Stage 0 left breast cancer treated in 2019 Giulia is a 50-year-old white female status post left breast lumpectomy and sentinel node biopsy on for ductal carcinoma in situ. Pathology revealed no residual DCIS and sentinel nodes were negative. The lesion was ER/FL positive. She was seen by radiation oncology however was not felt that she needed to have radiation therapy. She was started on tamoxifen however this caused elevation of her cholesterol and that was stopped. She is not concerned about any lumps masses or nodules in either breast. She is not complaining of any nipple discharge or skin changes. She has not had any recent trauma or infection of the breast. Bilateral mammogram [id number] benign BIRADS 2. Note from Dr. Minor reviewed from 02-21-21. Family History: 2 maternal aunts breast cancer Medical History: high cholesterol prediabetes racing heart follows with cardiology Surgical History: 3 C-sections Tubal ligation Cholecystectomy Umbilical hernia repair Right ovary/right tube and left tube gone she still has her left ovary Left breast lumpectomy with sentinel node biopsy Review of systems: Constitutional: Intermittent hot flashes improving HEENT: Negative was glasses Breasts: As per HPI Cardiovascular: High cholesterol Respiratory: Negative GI irritable bowel syndrome : Right ovary removed secondary to torsion/uterine ablation patient does not have menstrual periods at this time Musculoskeletal: Negative Integument: Negative Neurologic: Negative Psychiatric: Negative Endocrine: Prediabetic Objective - Vital Signs Vital signs: Vital Signs Temp 98.5 F 04/10/21 09:20 Pulse 98 04/10/21 09:20 Resp 16 04/10/21 09:20 BP 111/66 04/10/21 09:20 Pulse Ox Intake & Output 04/09/21 04/10/21 04/10/21 18:59 06:59 18:59 Weight 66.678 kg - Exam BMI 29.7 - Constitutional General appearance: Present: cooperative - EENT Eyes: Present: EOMI - Neck Neck: Present: normal ROM - Respiratory Respiratory: bilateral: CTA - Cardiovascular Heart sounds: normal: S1, S2 - Integumentary Integumentary: Present: normal turgor - Musculoskeletal Musculoskeletal: Present: gait normal - Psychiatric Psychiatric: Present: A&O x's 3, appropriate affect, intact judgment & insight - Additional findings Additional findings: Breast Exam: BRA: large sports bra inspection: Breast slightly smaller than left breast Palpation: Right breast: Multiple positional exam fibrocystic changes no dominant masses or nodules of concern Right axilla: No adenopathy of concern Left breast: Multi-positional exam fibrocystic changes, no dominant masses or nodules of concern well-healed scar from prior surgery Left axilla: No adenopathy of concern Assessment and Plan Assessment: Impression: 1. Patient doing well at this time no evidence of any recurrent disease 2. Fiber cystic breast changes Plan: 1. Bilateral mammogram in September with physician exam at that time 2. Patient to follow up sooner any questions or concerns Cc: Dr. Li
== END ==
LOC: WWCWWP 08:42
PROVIDERS: ATTEND Surgery
DX: N60.12 Diffuse cystic mastopathy of left breast (principal)

== ENCOUNTER → 2021-10-09 | Outpatient (CLI) | payer OTHER ==
--- NOTE | 2021-10-09 14:14 | MM ---
Reason for Exam: Follow-up at short interval from prior study. Last screening mammogram was performed 12 month(s) ago. Patient History: Menarche at age 11. First Full-Term at age 19. Right ovary removed at age 47. Breast cancer, age 48. 01/17/2019, Lumpectomy on the Left side. 01/17/2019, Malignant Core Biopsy on the left side. 01/17/2019, Malignant Core Biopsy on the left side. 11/04/2018, Malignant Core Biopsy on the left side. Maternal aunt had breast cancer, age 55. Maternal aunt had breast cancer, age 45. Tissue Density: The breast tissue is heterogeneously dense. This may lower the sensitivity of mammography. Findings: Analyzed By CAD. Postsurgical and posttreatment changes left breast. Stable punctate calcifications laterally left breast. No significant change from prior exams. Overall Assessment: Benign, BI-RAD 2 Management: Diagnostic Mammogram of both breasts in 1 year. 1. Continue with annual diagnostic mammograms both breast. 2. Patient should continue monthly self breast exams. 3. A clinical breast exam by your physician is recommended on an annual basis and results should be correlated with mammographic findings. Results were given to the patient verbally at the time of exam. Electronically signed and approved by: Romy Austin M.D. Radiologist
== END | disposition home or self-care (01) ==
LOC: RADMAMWWP 13:33
PROVIDERS: ATTEND Surgery
DX: R92.8 Other abnormal and inconclusive findings on diagnostic imaging of breast (principal); Z80.3 Family history of malignant neoplasm of breast; Z85.3 Personal history of malignant neoplasm of breast
CPT/HCPCS: 77062; 77066

== ENCOUNTER → 2021-10-16 | Outpatient (CLI) | payer OTHER ==
[2021-10-16 09:19] VITALS: BP 131/83; PULSE 99; RESP 18; TEMP 98.2
--- NOTE | 2021-10-16 09:59 | P.PN ---
Subjective Progress Note Date: 10/16/21 Principal diagnosis: DCIS left breast 2019 stage 0 left breast cancer 2019 Stage 0 left breast cancer treated in 2019 Giulia is a 51-year-old white female status post left breast lumpectomy and sentinel node biopsy on for ductal carcinoma in situ. Pathology revealed no residual DCIS and sentinel nodes were negative. The lesion was ER/IA positive. She was seen by radiation oncology however was not felt that she needed to have radiation therapy. She was started on tamoxifen however this caused elevation of her cholesterol and that was stopped. She is not concerned about any lumps masses or nodules in either breast. She is not complaining of any nipple discharge or skin changes. She has not had any recent trauma or infection of the breast. Bilateral mammogram [id number] benign BIRADS 2. She has no other following with medical and radiation oncology. She did not need any radiation therapy and she was unable to tolerate the tamoxifen. Family History: 2 maternal aunts breast cancer Medical History: high cholesterol prediabetes racing heart follows with cardiology Surgical History: 3 C-sections Tubal ligation Cholecystectomy Umbilical hernia repair Right ovary/right tube and left tube gone she still has her left ovary Left breast lumpectomy with sentinel node biopsy Review of systems: Constitutional: Intermittent hot flashes improving HEENT: Negative was glasses Breasts: As per HPI Cardiovascular: High cholesterol Respiratory: Negative GI irritable bowel syndrome : Right ovary removed secondary to torsion/uterine ablation patient does not have menstrual periods at this time Musculoskeletal: Negative Integument: Negative Neurologic: Negative Psychiatric: Negative Endocrine: Prediabetic Objective - Vital Signs Vital signs: Vital Signs Temp 98.2 F 10/16/21 09:16 Pulse 99 10/16/21 09:16 Resp 18 10/16/21 09:16 BP 131/83 10/16/21 09:16 Pulse Ox 97 10/16/21 09:16 FiO2 Intake & Output 10/15/21 10/16/21 10/16/21 18:59 06:59 18:59 Weight 68.492 kg - Exam BMI: 30.5 - Constitutional General appearance: Present: cooperative - EENT Eyes: Present: EOMI ENT: Present: hearing grossly normal - Neck Neck: Present: normal ROM - Respiratory Respiratory: bilateral: CTA - Cardiovascular Rhythm: regular Heart sounds: normal: S1, S2 - Gastrointestinal General gastrointestinal: Present: soft - Integumentary Integumentary: Present: normal turgor - Musculoskeletal Musculoskeletal: Present: gait normal - Psychiatric Psychiatric: Present: A&O x's 3, appropriate affect, intact judgment & insight - Additional findings Additional findings: Breast Exam: bra: large sports bra inspection: Scar left breast from prior surgery, bilateral grade 2/3 ptosis Palpation: Right breast: Multiple positional exam fibrocystic changes no dominant masses or margins of concern Axilla: No adenopathy of concern left breast: Well-healed scars from prior surgery no dominant masses or nodules of concern Left axilla: No adenopathy of concern Assessment and Plan Assessment: Impression: Left breast status post lumpectomy and sentinel node biopsy for ductal carcinoma in situ 10 12/2418 Plan: Repeat examination 6 months, patient to call sooner any questions or concerns Bilateral mammogram in 1 year CC: Dr. Li
== END ==
LOC: WWCWWP 08:37
PROVIDERS: ATTEND Surgery
DX: D05.12 Intraductal carcinoma in situ of left breast (principal); Z98.890 Other specified postprocedural states; E78.00 Pure hypercholesterolemia, unspecified

== ENCOUNTER → 2022-04-02 | Outpatient (CLI) | payer OTHER ==
[2022-04-02 08:57] VITALS: BP 134/84; PULSE 118; RESP 16; TEMP 98.5
--- NOTE | 2022-04-02 09:09 | P.PN ---
Subjective Progress Note Date: 04/02/22 Principal diagnosis: DCIS left breast DCIS left breast 2019 Stage 0 left breast cancer Giulia is a 51-year-old white female status post left breast lumpectomy and sentinel node biopsy on for ductal carcinoma in situ. Pathology revealed no residual DCIS and sentinel nodes were negative. The lesion was ER/VT positive. She was seen by radiation oncology however was not felt that she needed to have radiation therapy. She was started on tamoxifen however this caused elevation of her cholesterol and that was stopped. She is not concerned about any lumps masses or nodules in either breast. She is not complaining of any nipple discharge or skin changes. She has not had any recent trauma or infection of the breast. Bilateral mammogram 61622 benign BIRADS 2. She has no other following with medical and radiation oncology. She did not need any radiation therapy and she was unable to tolerate the tamoxifen. Family History: 2 maternal aunts breast cancer Medical History: high cholesterol prediabetes racing heart follows with cardiology Surgical History: 3 C-sections Tubal ligation Cholecystectomy Umbilical hernia repair Right ovary/right tube and left tube gone she still has her left ovary Left breast lumpectomy with sentinel node biopsy Review of systems: Constitutional: Intermittent hot flashes improving HEENT: Negative was glasses Breasts: As per HPI Cardiovascular: High cholesterol Respiratory: Negative GI irritable bowel syndrome : Right ovary removed secondary to torsion/uterine ablation patient does not have menstrual periods at this time Musculoskeletal: Negative Integument: Negative Neurologic: Negative Psychiatric: Negative Endocrine: Prediabetic Objective - Vital Signs Vital signs: Vital Signs Temp 98.5 F 04/02/22 08:55 Pulse 118 H 04/02/22 08:55 Resp 16 04/02/22 08:55 BP 134/84 04/02/22 08:55 Pulse Ox 98 04/02/22 08:55 FiO2 Intake & Output 04/01/22 04/02/22 04/02/22 18:59 06:59 18:59 Weight 69.853 kg - Constitutional General appearance: Present: cooperative - EENT Eyes: Present: EOMI ENT: Present: hearing grossly normal - Neck Neck: Present: normal ROM - Respiratory Respiratory: bilateral: CTA - Cardiovascular Rhythm: regular Heart sounds: normal: S1, S2 - Integumentary Integumentary: Present: normal turgor - Musculoskeletal Musculoskeletal: Present: gait normal - Psychiatric Psychiatric: Present: A&O x's 3, appropriate affect, intact judgment & insight - Additional findings Additional findings: Breast Exam: bra: large sports bra inspection: Scar left breast from prior surgery, bilateral grade 2/3 ptosis Palpation: Right breast: Multiple positional exam fibrocystic changes no dominant masses or margins of concern Axilla: No adenopathy of concern left breast: Well-healed scars from prior surgery no dominant masses or nodules of concern Left axilla: No adenopathy of concern Assessment and Plan Assessment: Impression: Patient status post left breast lumpectomy for stage II 0 ductal carcinoma in situ left breast/no evidence of any recurrence The patient was not recommended to have radiation therapy The patient started tamoxifen but did not tolerate this well and so did not take it, she has not been recommended to have an aromatase inhibitor by medical oncology Plan: Patient is due for bilateral mammogram in September 2022 Follow-up at the time of bilateral mammogram September 2022 Follow up sooner any questions or concerns CC: Dr. Li
== END ==
LOC: WWCWWP 08:38
PROVIDERS: ATTEND Surgery
DX: Z90.12 Acquired absence of left breast and nipple (principal)

== ENCOUNTER → 2022-10-15 | Outpatient (CLI) | payer OTHER ==
--- NOTE | 2022-10-15 11:59 | MM ---
Reason for Exam: Additional evaluation requested from prior study. Last screening mammogram was performed 12 month(s) ago. Patient History: Menarche at age 11. First Full-Term at age 19. Right ovary removed at age 47. Perimenopausal. Patient has history of breast feeding. Breast cancer, left, age 48. 01/17/2019, Lumpectomy on the Left side. 01/17/2019, Malignant Core Biopsy on the left side. 01/17/2019, Malignant Core Biopsy on the left side. 11/04/2018, Malignant Core Biopsy on the left side. Maternal aunt had breast cancer, age 55. Maternal aunt had breast cancer, age 45. Prior Study Comparison: 07/23/2017 Screening Mammogram, Unknown. 09/30/2018 Bilateral Screening Mammogram, [facility]. 10/05/2018 Left Diagnostic Mammogram, [facility]. 10/03/2019 Bilateral Diagnostic Mammogram, [facility]. 10/07/2020 Bilateral Diagnostic Mammogram, [facility]. 10/09/2021 Bilateral MG 3D diag mammo w/cad [facility], [facility]. Tissue Density: The breast tissue is heterogeneously dense. This may lower the sensitivity of mammography. Findings: Analyzed By CAD. Postsurgical changes left breast. Punctate dermal calcification inferior left breast remain unchanged. No significant change from prior exams. Overall Assessment: Benign, BI-RAD 2 Management: Screening Mammogram of both breasts in 1 year. Results were given to the patient verbally at the time of exam. Patient should continue monthly self-breast exams. A clinical breast exam by your physician is recommended on an annual basis. This exam should not preclude additional follow-up of suspicious palpable abnormalities. Note on Kristen scores and lifetime risk: 1. A Kristen score greater than 3% is considered moderate risk. If this is the case, consider specialist referral to assess eligibility for a risk reducing agent. 2. If overall lifetime risk for the development of breast cancer is 20% or higher, the patient may qualify for future screening with alternating mammogram and breast MRI. Electronically signed and approved by: Romy Austin M.D. Radiologist
--- NOTE | 2022-10-15 12:20 | P.PN ---
Subjective Progress Note Date: 10/15/22 DCIS left breast 2018 Stage 0 left breast cancer Giulia is a 52-year-old white female status post left breast lumpectomy and sentinel node biopsy on for ductal carcinoma in situ. Pathology revealed no residual DCIS and sentinel nodes were negative. The lesion was ER/MA positive. She was seen by radiation oncology however was not felt that she needed to have radiation therapy. She was started on tamoxifen however this caused elevation of her cholesterol and that was stopped. She is not concerned about any lumps masses or nodules in either breast. She is not complaining of any nipple discharge or skin changes. She has not had any recent trauma or infection of the breast. Bilateral mammogram 62223 benign BIRADS 2. She has no other following with medical and radiation oncology. She did not need any radiation therapy and she was unable to tolerate the tamoxifen. She is not taking any hormone therapy at this time. Family History: 2 maternal aunts breast cancer Medical History: high cholesterol prediabetes racing heart follows with cardiology Surgical History: 3 C-sections Tubal ligation Cholecystectomy Umbilical hernia repair Right ovary/right tube and left tube gone she still has her left ovary Left breast lumpectomy with sentinel node biopsy Review of systems: Constitutional: Intermittent hot flashes improving HEENT: Negative was glasses Breasts: As per HPI Cardiovascular: High cholesterol Respiratory: Negative GI irritable bowel syndrome : Right ovary removed secondary to torsion/uterine ablation patient does not have menstrual periods at this time Musculoskeletal: Negative Integument: Negative Neurologic: Negative Psychiatric: Negative Endocrine: Prediabetic Objective - Constitutional General appearance: Present: cooperative - EENT Eyes: Present: EOMI ENT: Present: hearing grossly normal - Neck Neck: Present: normal ROM - Respiratory Respiratory: bilateral: CTA - Cardiovascular Rhythm: regular Heart sounds: normal: S1, S2 - Gastrointestinal General gastrointestinal: Present: soft - Integumentary Integumentary: Present: normal turgor - Musculoskeletal Musculoskeletal: Present: gait normal - Psychiatric Psychiatric: Present: A&O x's 3, appropriate affect, intact judgment & insight - Additional findings Additional findings: Breast Exam: bra: large sports bra inspection: Scar left breast from prior surgery, bilateral grade 2/3 ptosis Palpation: Right breast: Multiple positional exam fibrocystic changes no dominant masses or margins of concern Axilla: No adenopathy of concern left breast: Well-healed scars from prior surgery no dominant masses or nodules of concern Left axilla: No adenopathy of concern Assessment and Plan Assessment: Impression: Patient status post left breast lumpectomy for stage 0 ductal carcinoma in situ left breast/no evidence of any recurrence The patient was not recommended to have radiation therapy The patient started tamoxifen but did not tolerate this well and so did not take it, she has not been recommended to have an aromatase inhibitor by medical oncology Bilateral mammogram 622-23 BIRAD 2 Plan: Patient is due for bilateral mammogram in September 2023 Follow-up 6 months Follow up sooner any questions or concerns The patient is going to see medical oncology one more time to discuss the possibility of an aromatase inhibitor secondary to the fact that she has had a ductal carcinoma in situ CC: Dr. Li
== END | disposition home or self-care (01) ==
LOC: RADMAMWWP 11:02
PROVIDERS: ATTEND Surgery
DX: Z86.000 Personal history of in-situ neoplasm of breast (principal); E78.00 Pure hypercholesterolemia, unspecified; Z85.3 Personal history of malignant neoplasm of breast; Z80.3 Family history of malignant neoplasm of breast; Z90.49 Acquired absence of other specified parts of digestive tract
CPT/HCPCS: 77062; 77066

== ENCOUNTER → 2022-10-15 | Outpatient (CLI) | payer OTHER ==
[2022-10-15 13:33] VITALS: BP 155/93; PULSE 95; RESP 17; TEMP 98.6
== END ==
LOC: WWCWWP 11:02
PROVIDERS: ATTEND Surgery
DX: Z53.9 Procedure and treatment not carried out, unspecified reason (principal)

== ENCOUNTER → 2023-05-20 | Outpatient (CLI) | payer OTHER ==
--- NOTE | 2023-05-20 15:05 | P.PN ---
Subjective Progress Note Date: 05/20/23 04-19-24 DCIS left breast 2018 Stage 0 left breast cancer Giulia is a 52-year-old white female status post left breast lumpectomy and sentinel node biopsy on for ductal carcinoma in situ. Pathology revealed no residual DCIS and sentinel nodes were negative. The lesion was ER/IA positive. She was seen by radiation oncology however was not felt that she needed to have radiation therapy. She was started on tamoxifen however this caused elevation of her cholesterol and that was stopped. She is not concerned about any lumps masses or nodules in either breast. She is not complaining of any nipple discharge or skin changes. She has not had any recent trauma or infection of the breast. Bilateral mammogram 622-23 benign BIRADS 2. She has no other following with medical and radiation oncology. She did not need any radiation therapy and she was unable to tolerate the tamoxifen. She is not taking any hormone therapy at this time, we again discussed the possibility of an aromatase inhibitor and at this time she is not interested. Family History: 2 maternal aunts breast cancer Medical History: high cholesterol prediabetes racing heart follows with cardiology Surgical History: 3 C-sections Tubal ligation Cholecystectomy Umbilical hernia repair Right ovary/right tube and left tube gone she still has her left ovary Left breast lumpectomy with sentinel node biopsy Review of systems: Constitutional: Intermittent hot flashes improving HEENT: Negative was glasses Breasts: As per HPI Cardiovascular: High cholesterol Respiratory: Negative GI irritable bowel syndrome : Right ovary removed secondary to torsion/uterine ablation patient does not have menstrual periods at this time Musculoskeletal: Negative Integument: Negative Neurologic: Negative Psychiatric: Negative Endocrine: Prediabetic Objective - Vital Signs Vital signs: Vital Signs Temp 98.7 F 05/20/23 14:52 Pulse 75 05/20/23 14:52 Resp 17 05/20/23 14:52 BP 122/72 05/20/23 14:52 Pulse Ox 100 05/20/23 14:52 FiO2 Intake & Output 05/19/23 05/20/23 05/20/23 18:59 06:59 18:59 Weight 68.039 kg - Constitutional General appearance: Present: cooperative - EENT Eyes: Present: EOMI ENT: Present: hearing grossly normal - Neck Neck: Present: normal ROM - Respiratory Respiratory: bilateral: CTA - Cardiovascular Rhythm: regular Heart sounds: normal: S1, S2 - Integumentary Integumentary: Present: normal turgor - Musculoskeletal Musculoskeletal: Present: gait normal - Psychiatric Psychiatric: Present: A&O x's 3, appropriate affect, intact judgment & insight - Additional findings Additional findings: Breast Exam: bra: large sports bra inspection: Scar left breast from prior surgery, bilateral grade 2/3 ptosis Palpation: Right breast: Multiple positional exam fibrocystic changes no dominant masses or nodules of concern Axilla: No adenopathy of concern left breast: Well-healed scars from prior surgery no dominant masses or nodules of concern Left axilla: No adenopathy of concern Assessment and Plan Assessment: Impression: Patient status post left breast lumpectomy for stage 0 ductal carcinoma in situ left breast/no evidence of any recurrence The patient was not recommended to have radiation therapy The patient started tamoxifen but did not tolerate this well and so did not take it, she has not been recommended to have an aromatase inhibitor by medical oncology Bilateral mammogram 622-23 BIRAD 2 Plan: Patient is due for bilateral mammogram in September 2023 Follow-up after mammogram in September 2023 Follow up sooner any questions or concerns CC: Dr. Li
[2023-05-20 15:10] VITALS: BP 122/72; PULSE 75; RESP 17; TEMP 98.7
== END ==
LOC: WWCWWP 14:38
PROVIDERS: ATTEND Surgery
DX: E78.00 Pure hypercholesterolemia, unspecified (principal); R73.03 Prediabetes; Z80.3 Family history of malignant neoplasm of breast; Z85.3 Personal history of malignant neoplasm of breast; Z98.890 Other specified postprocedural states

== ENCOUNTER → 2023-11-18 | Outpatient (CLI) | payer OTHER ==
--- NOTE | 2023-11-18 11:10 | MM ---
Reason for Exam: Hx of breast cancer, conservation therapy. Last mammogram was performed 1 year(s) and 1 month(s) ago. Patient History: Menarche at age 11. First Full-Term at age 19. Right ovary removed at age 47. Perimenopausal. Patient has history of breast feeding. Breast cancer, left, age 48. 01/17/2019, Lumpectomy on the Left side. 01/17/2019, Malignant Core Biopsy on the left side. 01/17/2019, Malignant Core Biopsy on the left side. 11/04/2018, Malignant Core Biopsy on the left side. Maternal aunt had breast cancer, age 55. Maternal aunt had breast cancer, age 45. Tissue Density: The breasts are heterogeneously dense, which may obscure small masses. Findings: Analyzed By CAD. No evidence for mass or suspicious clustered microcalcifications. Postoperative distortion left breast. Overall Assessment: Benign, BI-RAD 2 Management: Screening Mammogram of both breasts in 1 year. . Results were given to the patient verbally at the time of exam. Patient should continue monthly self-breast exams. A clinical breast exam by your physician is recommended on an annual basis. This exam should not preclude additional follow-up of suspicious palpable abnormalities. Note on Kristen scores and lifetime risk: 1. A Kristen score greater than 3% is considered moderate risk. If this is the case, consider specialist referral to assess eligibility for a risk reducing agent. 2. If overall lifetime risk for the development of breast cancer is 20% or higher, the patient may qualify for future screening with alternating mammogram and breast MRI. Electronically signed and approved by: Triston Jacobs M.D. Radiologis
== END | disposition home or self-care (01) ==
LOC: RADMAMWWP 10:29
PROVIDERS: ATTEND Surgery
DX: R92.333 Mammographic heterogeneous density, bilateral breasts (principal); Z85.3 Personal history of malignant neoplasm of breast; Z80.3 Family history of malignant neoplasm of breast; Z90.721 Acquired absence of ovaries, unilateral
CPT/HCPCS: 77062; 77066

== ENCOUNTER → 2023-11-25 | Outpatient (CLI) | payer OTHER ==
[2023-11-25 08:53] VITALS: BP 116/76; PULSE 100; RESP 16; TEMP 98.2
--- NOTE | 2023-11-25 09:00 | P.PN ---
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 Pathology revealed no residual DCIS and sentinel nodes were negative. The lesion was ER/VA positive. She was seen by radiation oncology however was not felt that she needed to have radiation therapy. She was started on tamoxifen however this caused elevation of her cholesterol and that was stopped. She is not concerned about any lumps masses or nodules in either breast. She is not complaining of any nipple discharge or skin changes. She has not had any recent trauma or infection of the breast. She had a 12 pound weight loss which was intentional. Bilateral mammogram 11-18-23 benign BIRADS 2., Personally reviewed and interp reted She is not following with medical oncology or radiation oncology. She did not need any radiation therapy and she was unable to tolerate the tamoxifen. Family History: 2 maternal aunts breast cancer Medical History: high cholesterol prediabetes racing heart follows with cardiology changed to Lupis for diabetes instead of metformin Surgical History: 3 C-sections Tubal ligation Cholecystectomy Umbilical hernia repair Right ovary/right tube and left tube gone she still has her left ovary Left breast lumpectomy with sentinel node biopsy Review of systems: Constitutional: Intermittent hot flashes improving HEENT: Negative was glasses Breasts: As per HPI Cardiovascular: High cholesterol Respiratory: Negative GI irritable bowel syndrome : Right ovary removed secondary to torsion/uterine ablation patient does not have menstrual periods at this time Musculoskeletal: Negative Integument: Negative Neurologic: Negative Psychiatric: Negative Endocrine: Prediabetic Objective - Constitutional General appearance: Present: cooperative - EENT Eyes: Present: EOMI ENT: Present: hearing grossly normal - Neck Neck: Present: normal ROM - Respiratory Respiratory: bilateral: CTA - Cardiovascular Rhythm: regular Heart sounds: normal: S1, S2 - Integumentary Integumentary: Present: normal turgor - Musculoskeletal Musculoskeletal: Present: gait normal - Psychiatric Psychiatric: Present: A&O x's 3, appropriate affect, intact judgment & insight - Additional findings Additional findings: Breast Exam: bra: large sports bra inspection: Scar left breast from prior surgery, bilateral grade 2/3 ptosis Palpation: Right breast: Multiple positional exam fibrocystic changes no dominant masses or margins of concern Axilla: No adenopathy of concern left breast: Well-healed scars from prior surgery no dominant masses or nodules of concern Left axilla: No adenopathy of concern Assessment and Plan Assessment: Impression: Patient status post left breast lumpectomy for stage 0 ductal carcinoma in situ left breast/no evidence of any recurrence The patient was not recommended to have radiation therapy The patient started tamoxifen but did not tolerate this well and so did not take it, she has not been recommended to have an aromatase inhibitor by medical oncology There is nothing on today's exam which would warrant interventional biopsy either on physical exam or radiographically Plan: Patient is due for bilateral mammogram in October 2024 Follow-up at the time of bilateral mammogram Follow up sooner any questions or concerns CC: Dr. Li
== END ==
LOC: WWCWWP 08:42
PROVIDERS: ATTEND Surgery
DX: Z48.817 Encounter for surgical aftercare following surgery on the skin and subcutaneous tissue (principal); E78.00 Pure hypercholesterolemia, unspecified; R63.4 Abnormal weight loss; Z80.3 Family history of malignant neoplasm of breast; Z85.3 Personal history of malignant neoplasm of breast; Z68.28 Body mass index [BMI] 28.0-28.9, adult

== ENCOUNTER → 2024-11-22 | Outpatient (CLI) | payer OTHER ==
--- NOTE | 2024-11-22 16:28 | MM ---
Reason for Exam: Screening (asymptomatic). Last screening mammogram was performed 12 month(s) ago. Patient History: Menarche at age 11. First Full-Term at age 19. Right ovary removed at age 47. Perimenopausal. Patient has history of breast feeding. Breast cancer, left, age 48. 01/17/2019, Lumpectomy on the Left side. 01/17/2019, Malignant Core Biopsy on the left side. 01/17/2019, Malignant Core Biopsy on the left side. 11/04/2018, Malignant Core Biopsy on the left side. Maternal aunt had breast cancer, age 55. Maternal aunt had breast cancer, age 45. Prior Study Comparison: 10/09/2021 Bilateral MG 3D diag mammo w/cad [facility], [facility]. 10/15/2022 Bilateral MG 3D diag mammo w/cad [facility], [facility]. 11/18/2023 Bilateral MG 3D diag mammo w/cad [facility], [facility]. Tissue Density: The breasts are heterogeneously dense, which may obscure small masses. Findings: Analyzed By CAD. Postsurgical and posttreatment change left breast. Punctate calcifications lateral left breast are unchanged. There is no suspicious group of microcalcifications or new suspicious mass in either breast. Overall Assessment: Benign, BI-RAD 2 Management: Screening Mammogram of both breasts in 1 year. Patient should continue monthly self-breast exams. A clinical breast exam by your physician is recommended on an annual basis. This exam should not preclude additional follow-up of suspicious palpable abnormalities. [facility], , 11/22/2024 4:25 PM. Electronically signed and approved by: Romy Austin M.D. Radiologist
== END | disposition home or self-care (01) ==
LOC: RADMAMWWP 11:02
PROVIDERS: ATTEND Surgery
DX: Z12.31 Encounter for screening mammogram for malignant neoplasm of breast (principal); R92.333 Mammographic heterogeneous density, bilateral breasts; R92.1 Mammographic calcification found on diagnostic imaging of breast; Z85.3 Personal history of malignant neoplasm of breast; Z80.3 Family history of malignant neoplasm of breast
CPT/HCPCS: 77063; 77067

== ENCOUNTER → 2024-11-23 | Outpatient (CLI) | payer OTHER ==
[2024-11-23 09:06] VITALS: BP 118/78; PULSE 98; RESP 16; TEMP 98.3
--- NOTE | 2024-11-23 09:18 | P.PN ---
Subjective Progress Note Date: 11/23/24 Principal diagnosis: stage 0 left breast cancer 201811-23-24 Principal diagnosis: DCIS left breast 2019 Stage 0 left breast cancer Giulia is a 54-year-old white female status post left breast lumpectomy and sentinel node biopsy on for ductal carcinoma in situ. Pathology revealed no residual DCIS and sentinel nodes were negative. The lesion was ER/[place] positive. She was seen by radiation oncology however was not felt that she needed to have radiation therapy. She was started on tamoxifen however this caused elevation of her cholesterol and that was stopped. She is not concerned about any lumps masses or nodules in either breast. She is not complaining of any nipple discharge or skin changes. She has not had any recent trauma or infection of the breast. She had a 18 pound weight loss which was intentional. Bilateral mammogram 11-22-24 benign BIRADS 2., Personally reviewed and interpreted She is not following with medical oncology or radiation oncology. She did not need any radiation therapy and she was unable to tolerate the tamoxifen. Family History: 2 maternal aunts breast cancer Medical History: high cholesterol prediabetes racing heart follows with cardiology changed to Lupis for diabetes instead of metformin Surgical History: 3 C-sections Tubal ligation Cholecystectomy Umbilical hernia repair Right ovary/right tube and left tube gone she still has her left ovary Left breast lumpectomy with sentinel node biopsy Review of systems: Constitutional: Intermittent hot flashes improving HEENT: Negative was glasses Breasts: As per HPI Cardiovascular: High cholesterol Respiratory: Negative GI irritable bowel syndrome : Right ovary removed secondary to torsion/uterine ablation patient does not have menstrual periods at this time Musculoskeletal: Negative Integument: Negative Neurologic: Negative Psychiatric: Negative Endocrine: Prediabetic Objective - Vital Signs Vital signs: Vital Signs Temp 98.3 F 11/23/24 08:53 Pulse 98 11/23/24 08:53 Resp 16 11/23/24 08:53 BP 118/78 11/23/24 08:53 Pulse Ox 99 11/23/24 08:53 FiO2 Intake & Output 11/22/24 11/23/24 11/23/24 18:59 06:59 18:59 Weight 62.596 kg - Constitutional General appearance: Present: cooperative - EENT Eyes: Present: EOMI ENT: Present: hearing grossly normal - Neck Neck: Present: normal ROM - Respiratory Respiratory: bilateral: CTA - Cardiovascular Rhythm: regular Heart sounds: normal: S1, S2 - Integumentary Integumentary: Present: normal turgor - Musculoskeletal Musculoskeletal: Present: gait normal - Psychiatric Psychiatric: Present: A&O x's 3, appropriate affect, intact judgment & insight - Additional findings Additional findings: Breast Exam: bra: large sports bra inspection: Scar left breast from prior surgery, bilateral grade 2/3 ptosis Palpation: Right breast: Multiple positional exam fibrocystic changes no dominant masses or margins of concern Axilla: No adenopathy of concern left breast: Well-healed scars from prior surgery no dominant masses or nodules of concern Left axilla: No adenopathy of concern Assessment and Plan Assessment: Impression: Patient status post left breast lumpectomy for stage 0 ductal carcinoma in situ left breast/no evidence of any recurrence The patient was not recommended to have radiation therapy The patient started tamoxifen but did not tolerate this well and so did not take it, she has not been recommended to have an aromatase inhibitor by medical oncology There is nothing on today's exam which would warrant interventional biopsy either on physical exam or radiographically Plan: Patient is due for bilateral mammogram in October 2025 Follow-up at the time of bilateral mammogram Follow up sooner any questions or concerns CC: Dr. Li
== END ==
LOC: WWCWWP 08:30
PROVIDERS: ATTEND Surgery
DX: C50.912 Malignant neoplasm of unspecified site of left female breast (principal); Z98.890 Other specified postprocedural states